=== PATIENT | female | born 1975 | race Caucasian/White ===

== ENCOUNTER → 2016-09-30 | Outpatient (CLI) | payer OTHER ==
--- NOTE | 2016-09-30 10:52 | REP ---
MAXILLOFACIAL CT WITHOUT CONTRAST: HISTORY: Chronic sinusitis. The patient is status post bilateral partial ethmoidectomy and left uncinectomy. Minimal mucosal thickening is present in the ethmoid and maxillary sinuses. A retention cyst or polyp is present in the right maxillary sinus. The remaining sinuses are clear. Mucosal thickening involves the right ostiomeatal unit. The middle and inferior nasal turbinates are partially paradoxical. The nasal septum is midline. The cribriform plate, medial nj of the orbits and optic canals are intact. The carotid canals form a segment of the posterolateral nj of the sphenoid sinus. IMPRESSION: 1. The patient is status post bilateral partial ethmoidectomy and left uncinectomy. 2. Sinus mucosal thickening as described above. 3. Right maxillary sinus retention cyst or polyp. Signed by Hernandez Carlos MD 09/30/2016 11:22 A
== END ==
LOC: M RAD 10:04
DX: J32.0 Chronic maxillary sinusitis (principal)

== ENCOUNTER → 2016-11-25 | Outpatient (REF) | payer OTHER | LOC: M LAB REF 17:06 | PROVIDERS: ATTEND Family Medicine | DX: Z12.4 Encounter for screening for malignant neoplasm of cervix (principal) ==

== ENCOUNTER → 2016-12-31 | Day surgery (SDC) | payer OTHER ==
[~2016-12-31] VITALS: Ht 170.2 cm; Wt 64.4 kg
[~2016-12-31] MED LIST: EPINEPHrine 1MG/ML INJ 30ML MD-VIAL As Ordered ONE; EPINEPHrine INJ 1 MG/ML 1ML VIAL/AMP As Ordered ONE; IBUPROFEN 800 MG TAB PO PRN; LIDOCAINE W/EPINEPHRINE 1% 20ML VIAL As Ordered ONE; LR 1,000 ML IV ONE; LR 1,000 ML IV SCH; METHYLENE BLUE 0.5% (5MG/ML) 10 ML AMP (PROVAYBLUE)(Q9968 PER 1MG) As Ordered ONE; MULT1TAB10 PO; ONDANSETRON 4MG/2ML VIAL (J2405) IV PRN; OXYMETAZOLINE NASAL SPRAY (AFRIN) As Ordered ONE; PERCOCET 5MG/325MG TAB PO PRN; SING10TA32 PO; TRAZ50TA4 PO; VITA100037 PO; ZOLO100T PO; fentaNYL 100 MCG/2 ML INJECTION (J3010) IV PRN
[2016-12-31 11:15] VITALS: BP 131/77
--- NOTE | 2017-01-02 11:46 | RO ---
DATE OF PROCEDURE: 12/31/2016 PREPROCEDURE DIAGNOSES: 1. Chronic rhinitis with hypertrophy of the inferior turbinates. 2. Chronic sinusitis. POSTPROCEDURE DIAGNOSES: PROCEDURE: Bilateral revision maxillary antrostomy with anterior ethmoidectomy and partial reduction of the inferior turbinates. SURGEON: Dr. Jose David Cooper BAKER PAINT: ANESTHESIA: INDICATIONS: This is a 41-year-old that had undergone previous endoscopic sinus surgery for chronic infection. Since that time, she has had issues with chronic nasal congestion, obstruction and recurrent infections. CT scan demonstrated adhesions that have formed in the region of the infundibulum associated with the middle turbinates that have caused occlusion of the ostiomeatal complex. In addition, she had very hypertrophic and chronically inflamed turbinates from rhinitis. DESCRIPTION OF PROCEDURE: Satisfactory general endotracheal tube anesthesia administered, pharyngeal pack was placed, the nose prepared for surgery by placing cotton-soaked pledgets of Afrin solution to the nasal cavity bilaterally, 1% Xylocaine with 1:100,000 epinephrine used to inject the inferior turbinates. First, endoscopic surgery was done. With the CT scan in full view during the procedure, 0 degree telescope used for first inspection and injection of the lateral nasal wall and middle turbinate. On the left side, the procedure first started by excising the lateral lamella of the middle turbinate which had occluded the infundibulum. I had become adherent to the uncinate process. The uncinate process was then shaved with the microdebrider. Remnants of ethmoidal bulla were also removed once the middle meatus was opened through this area. Small polyps had formed in the region of the middle turbinate inferiorly. These were removed with the microdebrider. Once a large space was created between the tip of the middle turbinate and the lateral nasal wall, visualization was excellent and the natural sinus ostia was visualized. This is then enlarged using a combination of side-biting and up-biting forceps. Completing this, remnants of ethmoidal bulla were removed and remnants of the uncinate process superiorly were removed. Adrenalin pledgets were placed in this side of the nose while an identical procedure was performed on the right side. After the Adrenalin pledgets were removed, there was no significant bleeding and for hemostasis, Nasopore packing was placed into each side of the nose. Next, the inferior turbinates were medially infractured, a 15-blade was used to make an incision on the anterior tips of the turbinate then a periosteal tunnel was created on the medial side of the turbinate. The microdebrider when then inserted through this tunnel and the underlying turbinate bone was shaved, reduced and more completely outfractured. Then the submucosa of the elevated mucoperichondrium periosteum was then shaved. Following suction, cautery was used to coagulate the posterior inferior tips of the turbinates. Completing this again, there was no significant bleeding. The pharyngeal pack was removed, throat suctioned. The patient was then awakened and extubated and sent to recovery in satisfactory condition. She was discharged home on doxycycline 100 mg twice daily and Percocet for pain. She will be seen in the office in 3 days.
== END | disposition home or self-care (01) ==
LOC: M SDC 06:54
PROVIDERS: ATTEND Specialist
DX: J31.0 Chronic rhinitis (principal); J34.3 Hypertrophy of nasal turbinates; J32.9 Chronic sinusitis, unspecified; J45.909 Unspecified asthma, uncomplicated; K21.9 Gastro-esophageal reflux disease without esophagitis; M54.9 Dorsalgia, unspecified; F41.9 Anxiety disorder, unspecified; F32.9 Major depressive disorder, single episode, unspecified; G43.909 Migraine, unspecified, not intractable, without status migrainosus; R06.83 Snoring; Z79.899 Other long term (current) drug therapy; Z98.51 Tubal ligation status; Z90.89 Acquired absence of other organs
CPT/HCPCS: 30130; 31254; 31256; 88305; Q9968

== ENCOUNTER → 2017-04-25 | Outpatient (CLI) | payer OTHER ==
[~2017-04-25] MED LIST changes: -EPINEPHrine 1MG/ML INJ 30ML MD-VIAL As Ordered ONE; -EPINEPHrine INJ 1 MG/ML 1ML VIAL/AMP As Ordered ONE; -IBUPROFEN 800 MG TAB PO PRN; -LIDOCAINE W/EPINEPHRINE 1% 20ML VIAL As Ordered ONE; -LR 1,000 ML IV ONE; -LR 1,000 ML IV SCH; -METHYLENE BLUE 0.5% (5MG/ML) 10 ML AMP (PROVAYBLUE)(Q9968 PER 1MG) As Ordered ONE; -ONDANSETRON 4MG/2ML VIAL (J2405) IV PRN; -OXYMETAZOLINE NASAL SPRAY (AFRIN) As Ordered ONE; -PERCOCET 5MG/325MG TAB PO PRN; +TRAZ50TA11 PO; -TRAZ50TA4 PO; -VITA100037 PO; +VITA100067 PO; -fentaNYL 100 MCG/2 ML INJECTION (J3010) IV PRN
--- NOTE | 2017-04-25 16:20 | REP ---
ABDOMEN, FLAT AND UPRIGHT, PA CHEST, FOUR VIEWS: HISTORY: Abdominal distention. A small amount of air is present in small and large intestine. There are no air fluid levels or dilated loops of intestine. There is no pneumoperitoneum. The lungs are clear. IMPRESSION: Nonspecific bowel gas pattern. Signed by Hernandez Carlos MD 04/25/2017 04:26 P
== END ==
LOC: M RAD 09:48
PROVIDERS: ATTEND Physician Assistant Medical
DX: R14.0 Abdominal distension (gaseous) (principal); R10.84 Generalized abdominal pain; R19.8 Other specified symptoms and signs involving the digestive system and abdomen

== ENCOUNTER → 2017-06-19 | Outpatient (CLI) | payer OTHER ==
--- NOTE | 2017-06-19 10:29 | REP ---
NUCLEAR GASTRIC EMPTYING SCAN: Following the oral administration of 1.03 mCi of technetium-99m sulfur colloid in two scrambled eggs in 6 ounces of water multiple images of the upper abdomen are performed in the anterior and posterior projections for 90 minutes. At the end of 90 minutes 44% of the ingested activity has emptied from the stomach. This yields a T1/2 out of 103 minutes. Based on the slope of the emptying curve when plotted on the graft the adjusted T1/2 is 93 minutes which is at the upper limits of normal. IMPRESSION: Gastric emptying time upper limits of normal. Signed by Maurice Hewitt MD 06/19/2017 02:35 P
== END ==
LOC: M RAD 08:06
PROVIDERS: ATTEND Physician Assistant Medical
DX: R68.81 Early satiety (principal); R12 Heartburn; R11.0 Nausea
CPT/HCPCS: 78264; A9541

== ENCOUNTER 2017-07-22 12:32 | Day surgery (SDC) | payer OTHER ==
[~2017-07-22] VITALS: Ht 167.6 cm; Wt 64.9 kg
[~2017-07-22 12:32] MED LIST changes: +PROT1TAB2 PO
[2017-07-22] MEDS ORDERED: NS 1,000 ML IV ONE (13:00)
[2017-07-22] MEDS ORDERED: PROPOFOL 200 MG/20 ML VIAL As Ordered ONE (13:28)
[2017-07-22] MEDS ORDERED: LIDOCAINE 2% INJ 100 MG/5 ML SDV (FOR ANES.) As Ordered ONE (13:28)
--- NOTE | 2017-07-22 13:55 | ROOR ---
Patient Name: Sunita Reynolds Procedure Date: 07/22/2017 1:44 PM Date of : 1975 Age: 41 Room: [facility] Gender: Female Note Status: Finalized Procedure: Upper GI endoscopy Indications: Functional Dyspepsia, Nausea Providers: Adán RASHID MD Referring MD: Monica MORALES DO Requesting Provider: Medicines: Monitored Anesthesia Care Complications: No immediate complications. Procedure: Pre-Anesthesia Assessment: - The heart rate, respiratory rate, oxygen saturations, blood pressure, adequacy of pulmonary ventilation, and response to care were monitored throughout the procedure. The Endoscope was introduced through the mouth, and advanced to the second part of duodenum. The upper GI endoscopy was accomplished without difficulty. The patient tolerated the procedure well. Findings: The esophagus was normal. The stomach was normal. The examined duodenum was normal. Impression: - Normal esophagus. - Normal stomach. - Normal examined duodenum. - No specimens collected. Recommendation: - Continue present medications. - Follow an antireflux regimen. Adán Rashid MD Adán RASHID MD 07/22/2017 1:55:19 PM This report has been signed electronically. Number of Addenda: 0 Note Initiated On: 07/22/2017 1:44 PM Estimated Blood Loss: Estimated blood loss: none.
[2017-07-22 14:32] VITALS: BP 112/70
== END 2017-07-22 14:30 | disposition home or self-care (01) ==
LOC: M OPP 12:32
PROVIDERS: ATTEND Internal Medicine Gastroenterology
DX: K30 Functional dyspepsia (principal); R11.0 Nausea; R14.0 Abdominal distension (gaseous); R19.7 Diarrhea, unspecified; R68.81 Early satiety; R10.9 Unspecified abdominal pain; K21.9 Gastro-esophageal reflux disease without esophagitis; G43.909 Migraine, unspecified, not intractable, without status migrainosus; J32.9 Chronic sinusitis, unspecified; J45.909 Unspecified asthma, uncomplicated; F41.9 Anxiety disorder, unspecified; E04.1 Nontoxic single thyroid nodule; Z79.899 Other long term (current) drug therapy

== ENCOUNTER → 2018-06-12 | Outpatient (CLI) | payer OTHER | LOC: M RAD 08:58 | DX: R10.11 Right upper quadrant pain (principal); R11.0 Nausea; K82.8 Other specified diseases of gallbladder | CPT/HCPCS: 76705 ==

== ENCOUNTER → 2018-08-11 | Outpatient (CLI) | payer OTHER ==
[~2018-08-11] MED LIST changes: +GASTROGRAFIN SOLUTION 30ML (Q9963) As Ordered ONE; +HAIR1CAP2 PO; +ISOVUE-370 76% 100ML VIAL (Q9967) As Ordered ONE; +MIRA3350 PO; +MOME50SP; +TRAZ-160 PO; -TRAZ50TA11 PO
--- NOTE | 2018-08-14 10:05 | REP ---
Clinical: Right upper quadrant pain. Technique: Axial contrast enhanced images from the lung bases to the pubic symphysis using oral (per protocol) and 100 ml Isovue 370 intravenous contrast material with precontrast and delayed images of the abdomen as well as coronal and sagittal re-formations. Findings: Lung bases are clear. Visualized heart and pericardium normal. Liver, spleen, pancreas, gallbladder, bilateral adrenal glands and kidneys are normal. The enteric system is without obstruction or acute inflammatory process. Scattered sigmoid diverticula noted without acute diverticulitis. Small hiatal hernia at the gastroesophageal junction suggested. Pelvis demonstrates normal bladder and age-appropriate uterus/adnexa. No ascites. No free air. No adenopathy. Abdominal aorta and vasculature without aneurysm or dissection. Surrounding musculoskeletal structures are intact at Impression: 1. Few scattered sigmoid diverticula without acute diverticulitis. 2. Suspected small hiatal hernia. 3. No further acute abdominopelvic pathology appreciated. Electronically Signed by Kendall Zuluaga MD 08/14/2018 09:56 A
== END ==
LOC: M RAD 09:41
PROVIDERS: ATTEND Internal Medicine Gastroenterology
DX: R10.11 Right upper quadrant pain (principal)
CPT/HCPCS: 74178; Q9963; Q9967

== ENCOUNTER 2018-09-17 11:28 | Day surgery (SDC) | payer OTHER ==
[~2018-09-17] VITALS: Ht 170.2 cm; Wt 67.1 kg
[~2018-09-17 11:28] MED LIST changes: -GASTROGRAFIN SOLUTION 30ML (Q9963) As Ordered ONE; -ISOVUE-370 76% 100ML VIAL (Q9967) As Ordered ONE; +LEXA1TAB PO; +NS 1,000 ML IV SCH
[2018-09-17] MEDS ORDERED: LIDOCAINE 2% INJ 100 MG/5 ML SDV (FOR ANES.) As Ordered ONE (11:34)
[2018-09-17] MEDS ORDERED: PROPOFOL 200 MG/20 ML VIAL As Ordered ONE (11:34)
--- NOTE | 2018-09-17 12:38 | ROOR ---
Patient Name: Sunita Reynolds Procedure Date: 09/17/2018 12:25 PM Date of : 1975 Age: 42 Room: [facility] Gender: Female Note Status: Finalized Procedure: Upper GI endoscopy Indications: Abdominal pain, Nausea Providers: Adán RASHID MD Referring MD: Monica MORALES DO Requesting Provider: Medicines: Monitored Anesthesia Care Complications: No immediate complications. Procedure: Pre-Anesthesia Assessment: - The heart rate, respiratory rate, oxygen saturations, blood pressure, adequacy of pulmonary ventilation, and response to care were monitored throughout the procedure. The Endoscope was introduced through the mouth, and advanced to the second part of duodenum. The upper GI endoscopy was accomplished without difficulty. The patient tolerated the procedure well. Findings: The esophagus was normal. The stomach was normal. The examined duodenum was normal. Impression: - Normal esophagus. - Normal stomach. - Normal examined duodenum. - No specimens collected. Recommendation: - Observe patient's clinical course. Adán Rashid MD Adán RASHID MD 09/17/2018 12:38:29 PM This report has been signed electronically. Number of Addenda: 0 Note Initiated On: 09/17/2018 12:25 PM Estimated Blood Loss: Estimated blood loss: none.
--- NOTE | 2018-09-17 12:53 | ROOR ---
Patient Name: Sunita Reynolds Procedure Date: 09/17/2018 12:27 PM Date of : 1975 Age: 42 Room: [facility] Gender: Female Note Status: Finalized Procedure: Colonoscopy Indications: High risk colon cancer surveillance: Personal history of colonic polyps, Incidental abdominal distress noted, Incidental change in bowel habits noted Providers: Adán RASHID MD Referring MD: Monica MORALES DO Requesting Provider: Medicines: Monitored Anesthesia Care Complications: No immediate complications. Procedure: Pre-Anesthesia Assessment: - The heart rate, respiratory rate, oxygen saturations, blood pressure, adequacy of pulmonary ventilation, and response to care were monitored throughout the procedure. The Colonoscope was introduced through the anus and advanced to 15 cm into the ileum. The colonoscopy was performed without difficulty. The patient tolerated the procedure well. The quality of the bowel preparation was good. Findings: The perianal and digital rectal examinations were normal. Retroflexion in the right colon was performed. The colon (entire examined portion) appeared normal. The terminal ileum appeared normal. Small Internal Hemorrhoids. Impression: - The entire colon is normal. - The examined portion of the ileum was normal. - Small Internal Hemorrhoids. - No specimens collected. Recommendation: - Continue present medications. - Repeat colonoscopy in 5 years for adenoma surveillance. Adán Rashid MD Adán RASHID MD 09/17/2018 12:53:03 PM This report has been signed electronically. Number of Addenda: 0 Note Initiated On: 09/17/2018 12:27 PM Estimated Blood Loss: Estimated blood loss: none.
[2018-09-17 13:20] VITALS: BP 126/75
== END 2018-09-17 13:22 | disposition home or self-care (01) ==
LOC: M OPP 11:28
PROVIDERS: ATTEND Internal Medicine Gastroenterology
DX: Z12.11 Encounter for screening for malignant neoplasm of colon (principal); Z86.010 Personal history of colon polyps; R11.0 Nausea; R10.9 Unspecified abdominal pain; K21.9 Gastro-esophageal reflux disease without esophagitis; Z79.899 Other long term (current) drug therapy; Z80.3 Family history of malignant neoplasm of breast; Z80.1 Family history of malignant neoplasm of trachea, bronchus and lung

== ENCOUNTER → 2019-06-25 | Outpatient (CLI) | payer OTHER ==
[~2019-06-25] MED LIST changes: -NS 1,000 ML IV SCH; -TRAZ-160 PO; +TRAZ-252 PO
--- NOTE | 2019-07-13 05:57 | ECWPNPC ---
PATIENT NAME: LAYNE CARSON : 1975 GENDER: FEMALE VISIT DATE: 06/25/2019 DISCHARGE DATE: 06/25/19 1654 VISIT LOCKED DATE TIME: PHYSICIAN: JOSEP WAGNER MD RESOURCE: JOSEP WAGNER MD REASON FOR APPOINTMENT 1. ACET INJ/SI INJECTIONS HISTORY OF PRESENT ILLNESS PAIN SCREENING: PATIENT HAS A COMPLAINT OF ACUTE OR CHRONIC PAIN :YES 43 YEAR OLD FEMALE PATIENT WITH A HISTORY OF CHRONIC LOW BACK AND LEG PAIN. THE PATIENT DESCRIBES THE PAIN ACHING, BURNING, SHARP, TENDER, SHOOTING, DAILY, AND CONTINUOUS WITH A PAIN SCORE OF 8-10/10 DEPENDING ON PHYSICAL ACTIVITY. THE PATIENT STATES HER PAIN BEGINS IN HER LOW BACK WITH NUMBNESS, TINGLING SENSATIONS, AND PAIN RADIATING DOWN BOTH LEGS, BUT MAINLY HER LEFT LEG IS AFFECTED. THE PATIENT SAYS WHEN SHE STANDS UP PAIN SHOOTS DOWN BOTH LEGS FROM HER LOW BACK. THE PATIENT STATES HER PAIN STARTED IN 2005 AFTER CHILDBIRTH AND HAS INCREASED OVER THE YEARS SINCE THEN TO THE POINT THAT THE PAIN IS NOW SEVERE FOR HER. PATIENT DENIES UNEXPLAINABLE WEIGHT LOSS, FEVER, CHILLS, NEW CHANGES ON HER URINARY OR BOWEL CONTROL. FALL RISK SCREENING: SCREENING :NO FALLS REPORTED IN THE LAST YEAR CURRENT MEDICATIONS TAKING LEXAPRO 10 MG TABLET 1 TABLET ORALLY ONCE A DAY TAKING TRAZODONE HCL 50 MG TABLET 1 TABLET AT BEDTIME NEEDED ORALLY ONCE A DAY TAKING SINGULAIR 10 MG TABLET 1 TABLET ORALLY ONCE A DAY TAKING GABAPENTIN 100 MG CAPSULE 1 CAPSULE ORALLY ONCE A DAY TAKING TIZANIDINE HCL 4 MG TABLET 1 TABLET NEEDED ORALLY THREE TIMES A DAY TAKING PEPCID 20 MG TABLET 1 TABLET AT BEDTIME NEEDED ORALLY ONCE A DAY TAKING MULTIVITAMINS TABLET 1 ORALLY DAILY TAKING ALBUTEROL SULFATE HFA 108 (90 BASE) MCG/ACT AEROSOL SOLUTION 2 PUFFS INHALATION NEEDED NOT-TAKING CYMBALTA 60 MG 1 TABLET PO ONCE DAILY NOT-TAKING MELATONIN 3 MG TABLET 1 TAB ORALLY NIGHTLY NOT-TAKING ADVAIR DISKUS 250-50 MCG/DOSE MISCELLANEOUS 1 INHALATION ONCE DAILY NOT-TAKING NEXIUM 40 MG CAPSULE DELAYED RELEASE DIRECTED ORALLY PRN MEDICATION LIST REVIEWED AND RECONCILED WITH THE PATIENT PAST MEDICAL HISTORY ASTHMA ANXIETY INSOMNIA SEASONAL ALLERGIES GOITER/REMOVED DEPRESSION CYSTOCELE CHRONIC BACK PAIN ALLERGIES N.K.D.A. SURGICAL HISTORY THYROIDECTOMY/PARTIAL---BENIGN 02/2010 TUBAL LIGATION 03/30 RIGHT BREAST LUMP REMOVED/BENIGN 2000 SINUS SURGERY 2018 BLADDER SLING 03/2019 FAMILY HISTORY FATHER: ALIVE, HTN , HYPERLIPIDEMIA, DIAGNOSED WITH OTHER MALIGNANT NEOPLASM OF UNSPECIFIED SITE MOTHER: ALIVE, HTN, HYPERLIPIDEMIA, HYPERTENSION, UNSPECIFIED NONPSYCHOTIC MENTAL DISORDER FOLLOWING ORGANIC BRAIN DAMAGE MATERNAL AUNT: ALIVE, BREAST CANCER AGE 78, OTHER MALIGNANT NEOPLASM OF UNSPECIFIED SITE SOCIAL HISTORY GENERAL: TOBACCO USE ARE YOU A:NEVER SMOKER OTHERS AT HOME: SPOUSE, CHILDREN. EDUCATION LEVEL OF EDUCATION:HIGH SCHOOL DIET: REGULAR/NO ED. LANGUAGE LANGUAGES SPOKEN:MAORI DOMESTIC VIOLENCE NONE. RECREATIONAL DRUG USE DENIES. EXERCISE: NO REGULAR EXERCISE. LEARNING BARRIERS / SPECIAL NEEDS BARRIERS TO LEARNING?NO HEARING IMPAIRED?NO VISION IMPAIRED?NO COGNITIVELY IMPAIRED?NO READINESS TO LEARN?YES PAIN CLINIC PFS, CLERGY, PUBLIC HEALTH REFERRALS HAS THE PATIENT BEEN EDUCATED REGARDING HIS/HER PLAN OF CARE?YES HAS THE PATIENT BEEN EDUCATED REGARDING PAIN, THE RISK FOR PAIN, THE IMPORTANCE OF EFFECTIVE PAIN MANAGEMENT, AND THE PAIN ASSESSMENT PROCESS?YES LATEX QUESTIONNAIRE LATEX ALLERGY : HAVE YOU EVER DEVELOPED ANY TYPE OF REACTION AFTER HANDLING LATEX PRODUCTS SUCH RUBBER GLOVES, CONDOMS, DIAPHRAGMS, BALLOONS, SOCKS, OR UNDERWEAR?NO LATEX ALLERGY : HAVE YOU EVER DEVELOPED ANY TYPE OF REACTION DURING OR AFTER DENTAL APPOINTMENT, VAGINAL/RECTAL EXAMINATION, SURGICAL PROCEDURE, OR ANY OTHER EXPOSURE?NO LATEX RISK : HAVE YOU EVER HAD ANY DIFFICULTY BREATHING OR HIVES AFTER EATING OR HANDLING ANY FRUITS, OR VEGETABLES; SUCH KIWI, BANANAS, STONE FRUITS, OR CHESTNUTSNO LATEX RISK : DO YOU HAVE A PREVIOUS PERSONAL HISTORY OF MORE THAN NINE SURGERIES, SPINA BIFIDA, OR REPEATED CATHERIZATIONS? NO LATEX RISK : ARE YOU FREQUENTLY EXPOSED TO LATEX PRODUCTS IN YOUR OCCUPATION?NO DATE ASKED : 06/25/2019 CAFFEINE CAFFEINE USE?YES COFFEE 3-4 TIMES A DAY ADVANCE DIRECTIVE ADVANCE DIRECTIVE DISCUSSED WITH PATIENT:YES PT DOES NOT HAVE HCP AND DECLINES INFO AND ASSISTANCE WITH FORM AT THIS TIME. 06/25/19 HOAHAOISM HOAHAOISM NO ZOROASTRIANISM BELIEFS THAT WOULD IMPACT HEALTH CARE. MARITAL STATUS: . 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 REVIEWED WITH PATIENT 06/25/19 1539 BV. HOSPITALIZATION/MAJOR DIAGNOSTIC PROCEDURE SEE ABOVE AND CHILDBIRTH X4 REVIEW OF SYSTEMS REVIEWED BY: PROVIDER: JOSEP WAGNER MD . CONSTITUTIONAL: ANY CHANGE IN YOUR MEDICAL CONDITION? NO . CHILLS NO . FEVER NO . INFECTION: DO YOU HAVE NEW INFECTIONS? NO . DO YOU HAVE HISTORY OF MRSA? NO . MUSCULOSKELETAL: ANY NEW PATTERNS OF PAIN OR NUMBNESS? NO . SYTEMIC LUPUS NO . GASTROENTEROLOGY: ANY NEW CHANGE IN BOWEL CONTROL? NO . BARRETTS ESOPHAGUS NO . CIRRHOSIS NO . HEPATITIS NO . LIVER FAILURE NO . ACID REFLUX YES . UNEXPLAINED WEIGHT LOSS NO . GENITOURINARY: ANY NEW CHANGE IN BLADDER CONTROL? NO . IS THERE A CHANCE YOU COULD BE ? NO . HEMATOLOGY/LYMPH: DO YOU TAKE ANY BLOOD THINNERS? (FOR EXAMPLE- COUMADIN, PLAVIX, AGGRENOX, PLATEL, PRADAXA, OR XARELTO) NO . WHEN WAS YOUR LAST DOSE? DATE: TIME: . LOW PLATELET COUNT NO . SICKLE CELL DISEASE NO . VON WILLIEBRANDS NO . FACTOR V LEIDEN NO . THALLASEMIA NO . ANEMIA NO . EASY BRUISING NO . NEUROLOGY: HAVE YOU FALLEN IN THE PAST 12 MONTHS? NO . ANY NEW EXTREMITY NUMBNESS OR WEAKNESS? NO . HEAD INJURY NO . DEMENTIA NO . CEREBRAL PALSY NO . MULTIPLE SCLEROSIS NO . DIZZINESS YES, PT STATES SHE SOMETIMES GETS DIZZINESS AND LIGHTHEADED UPON STANDING OR WHEN BENDING OVER. USUALLY GOES AWAY WITHIN A FEW SECONDS . HEADACHE YES,PT STATES SHE USUALLY GETS A HEADACHE EVERY WEEK THAT SEEMS TO LAST A FEW DAYS. PT DESCRIBES THE HEADACHE A NAGGING LINGERING PAIN THAT SEEMS TO MOSTLY BE IN HER RIGHT DRUZE AREA. . STROKES NO . VERTIGO NO . CARDIOLOGY: DO YOU HAVE A PACEMAKER OR DEFIBRILLATOR? NO . ANGINA NO . HEART ATTACK NO . HEART SURGERY NO . CONGESTIVE HEART FAILURE/FLUID OVERLOAD NO . CHEST PAIN OCCASIONALY RELATED TO ANXIETY . HIGH BLOOD PRESSURE NO . IRREGULAR HEART BEAT NO . RESPIRATORY: HAVE YOU BEEN SICK IN THE PAST WEEK? NO . FEVER NO . FLU LIKE SYMPTOMS? NO . CPAP NO . BYPAP NO . ASTHMA YES, A CHILD . EMPHYSEMA NO . CHRONIC LUNG DISEASES NO . SHORTNESS OF BREATH ON EXERTION NO . COUGH NO . SNORING YES . INTEGUMENTARY: DO YOU HAVE ANY RASHES OR OPEN SORES? NO . ALLERGIC/IMMUNO: ARE YOU ALLERGIC TO IV DYE? NO . ANY NEW ALLERGIES? NO . PSYCHIATRIC: DO YOU HAVE THOUGHTS OF HURTING YOURSELF OR SOMEONE ELSE? NO . ARE YOU ABUSED, NEGLECTED, OR IN AN UNSAFE ENVIRONMENT? NO . ENDOCRINOLOGY: ARE YOU DIABETIC? NO . THYROID DISORDER HAD PARTIAL THYROID REMOVAL . OTHER: DO YOU NEED ANY PRESCRIPTIONS? NO . IF YES, PLEASE LIST: ____ . ANY NEW PROBLEMS WITH YOUR MEDICATIONS? NO . WHEN DID YOU LAST EAT? ____ . WHEN DID YOU LAST DRINK? ____ . WHAT DID YOU LAST DRINK? ____ . NAME OF PERSON DRIVING YOU HOME? ____ . DO YOU HAVE ANY OTHER QUESTIONS OR CONCERNS NO . VITAL SIGNS WT 144.6 LBS, HT 66.5 IN, BMI 22.99 INDEX, BP 122/78 MM HG, HR 57 /MIN, RR 18 /MIN, TEMP 97.4 F, OXYGEN SAT % 99%, NA INITIALS AW 1530, REVIEWED BY: BV. EXAMINATION GENERAL EXAMINATION: PATIENT IS ALERT O X 3 AND COOPERATIVE. LUNGS CLEAR, TO AUSCULTATION. HEART: NO MURMURS OR GALLOPS; FACIAL CRANIAL NERVES ARE GROSSLY NORMAL. GOOD SYMMETRY OF FACIAL MUSCLE MOVEMENT. NORMAL VISUAL DASILVA. ANTALGIC WALK. LEFT LEG IS WEAKER AT EXTENSION AND FLEXION, ESPECIALLY AT EXTENSION. PATIENT HAS DIFFICULTY STANDING. STRAIGHT LEG RAISE OF THE LEFT LEG IS POSITIVE AT 45 DEGREES FOR RADICULOPATHY. MRI OF THE LUMBAR SPINE DONE ON 05/13/2019 SHOWS BULGING DISC AT L4-L5 LEVEL. ASSESSMENTS INTERVERTEBRAL DISC DISORDERS WITH RADICULOPATHY, LUMBAR REGION - M51.16 (PRIMARY) TREATMENT INTERVERTEBRAL DISC DISORDERS WITH RADICULOPATHY, LUMBAR REGION CLINICAL NOTES: WE DISCUSSED SEVERAL ISSUES WITH MS. CARSON'S PAIN MANAGEMENT CASE. DUE TO THE LUMBAR RADICULOPATHY, I WOULD LIKE TO MOVE FORWARD WITH A LUMBAR EPIDURAL STEROID INJECTION AT THIS TIME. WE DISCUSSED THE BENEFITS, RISKS, AND ALTERNATIVES OF THE INJECTION AND THE PATIENT WOULD LIKE TO PROCEED. I AM LOOKING FOR LONG LASTING PAIN RELIEF FROM THIS INJECTION FOR THE PATIENT. THE PATIENT WILL FOLLOW UP IN SEVERAL WEEKS AFTER HER INJECTION. INSTRUCTIONS WERE GIVEN, QUESTIONS WERE ANSWERED, PATIENT REPORTS UNDERSTANDING AND AGREES WITH THE PLAN. I, PRICILLA RED, DOCUMENTED THE ABOVE INFORMATION ACTING A SCRIBE FOR DR. WAGNER. I HAVE REVIEWED THE ABOVE DOCUMENT, WRITTEN BY PRICILLA RED SCRIBE AND I VERIFY THAT IT IS ACCURATE. DEAR JOEL BANGURA: THANK YOU FOR YOUR KIND REFERRAL OF LAYNE CARSON. IF YOU WANT TO DISCUSS HER CASE WITH ME PLEASE CALL ME AT THE PAIN CENTER AT [phone]. SINCERELY, JOSEP WAGNER MD PAIN MEDICINE . PREVENTIVE MEDICINE PAIN CLINIC TEACHING: PROCEDURE TEACHING PT GIVEN WRITTEN AND VERBAL EDUCATION ON LUMBAR EPIDURAL, PT ALSO GIVEN WRITTEN AND VERBAL PRE PROCEDURE INSTRUCTIONS. PT VERBALIZES UNDERSTANDING OF ALL EDUCATION AND INSTRUCTIONS. DEVORAH PATEL 06/25/2019 4:57:04 PM > . PROCEDURE CODES FA211 ESTABILISHED PATIENT [facility] FACILITY CHARGE [id number] CURRENT MEDS W/DOSAGES DOCUMENTED G8730 PAIN ASSESS POS TOOL F/U PLAN DOC DISPOSITION & COMMUNICATION FOLLOW UP REASON: LESI ELECTRONICALLY SIGNED BY JOSEP WAGNER MD, MD ON 07/12/2019 AT 05:35 PM EST DISCLAIMER : THIS IS A VISIT SUMMARY EXTRACTED FROM THE [employer] CHART. IT IS NOT A COPY OF THE [employer] PROGRESS NOTE. THIERNOD
== END ==
LOC: M PAIN 15:30
PROVIDERS: ATTEND Anesthesiology
DX: M51.16 Intervertebral disc disorders with radiculopathy, lumbar region (principal); G89.29 Other chronic pain; Z86.59 Personal history of other mental and behavioral disorders; G47.00 Insomnia, unspecified; Z79.899 Other long term (current) drug therapy

== ENCOUNTER → 2019-07-14 | Outpatient (CLI) | payer OTHER ==
--- NOTE | 2019-07-31 02:58 | ECWPNPC ---
PATIENT NAME: LAYNE CARSON : 1975 GENDER: FEMALE VISIT DATE: 07/14/2019 DISCHARGE DATE: 07/14/19 1033 VISIT LOCKED DATE TIME: PHYSICIAN: CHEYENNE HODGSON RESOURCE: CHEYENNE HODGSON HISTORY OF PRESENT ILLNESS HISTORY OF PRESENT ILLNESS: 43 Y/O FEMALE BEING SEEN ON AN URGENT BASIS FOR MEDICINE MANAGEMENT.REPORTING THAT CURRENT MEDICATION NOT WORKING.SHE HAS HAD PERSISTENT BACK PAIN AND RIGHT BUTTOCK PAIN.LESI IS PLANNED FOR 08/04/19.REVIEWED MRI AND DISCUSSED MEDICATION OPTIONS.PAIN IS ACROSS LOW BACK WITH RADIATION INTO RIGHT BUTTOCK.STARTED MEDICATION TRIALS FOR CHRONIC PAIN APPROXIMATLEY 5 YEARS AGO.STATES GABAPENTIN 300MG AT NIGHT CAUSED AM FATIGUE AND SHE IS USING THIS JUST NEEDED OVER THE PAST FEW YEARS.HAS TRIALED FLEXERIL PERIODICALLY WITH NO IMPROVEMENT.STARTED TIZANIDINE 4MG RECENTLY WITHOUT IMPROVEMENT.PAIN IS WORSE AT NIGHT.RATING PAIN VAS 7/10. PAIN THE PATIENT DESCRIBES THE PAIN... FALL RISK SCREENING: SCREENING :NO FALLS REPORTED IN THE LAST YEAR CURRENT MEDICATIONS TAKING LEXAPRO 10 MG TABLET 1 TABLET ORALLY ONCE A DAY TAKING TRAZODONE HCL 50 MG TABLET 1 TABLET AT BEDTIME NEEDED ORALLY ONCE A DAY TAKING SINGULAIR 10 MG TABLET 1 TABLET ORALLY ONCE A DAY TAKING GABAPENTIN 100 MG CAPSULE 1 CAPSULE ORALLY ONCE A DAY TAKING TIZANIDINE HCL 4 MG TABLET 1 TABLET NEEDED ORALLY THREE TIMES A DAY TAKING PEPCID 20 MG TABLET 1 TABLET AT BEDTIME NEEDED ORALLY ONCE A DAY TAKING MULTIVITAMINS TABLET 1 ORALLY DAILY TAKING ALBUTEROL SULFATE HFA 108 (90 BASE) MCG/ACT AEROSOL SOLUTION 2 PUFFS INHALATION NEEDED NOT-TAKING CYMBALTA 60 MG 1 TABLET PO ONCE DAILY NOT-TAKING MELATONIN 3 MG TABLET 1 TAB ORALLY NIGHTLY NOT-TAKING ADVAIR DISKUS 250-50 MCG/DOSE MISCELLANEOUS 1 INHALATION ONCE DAILY NOT-TAKING NEXIUM 40 MG CAPSULE DELAYED RELEASE DIRECTED ORALLY PRN MEDICATION LIST REVIEWED AND RECONCILED WITH THE PATIENT PAST MEDICAL HISTORY ASTHMA ANXIETY INSOMNIA SEASONAL ALLERGIES GOITER/REMOVED DEPRESSION CYSTOCELE CHRONIC BACK PAIN ALLERGIES N.K.D.A. SURGICAL HISTORY THYROIDECTOMY/PARTIAL---BENIGN 02/2010 TUBAL LIGATION 03/30 RIGHT BREAST LUMP REMOVED/BENIGN 2000 SINUS SURGERY 2018 BLADDER SLING 03/2019 FAMILY HISTORY FATHER: ALIVE, HTN , HYPERLIPIDEMIA, DIAGNOSED WITH OTHER MALIGNANT NEOPLASM OF UNSPECIFIED SITE MOTHER: ALIVE, HTN, HYPERLIPIDEMIA, HYPERTENSION, UNSPECIFIED NONPSYCHOTIC MENTAL DISORDER FOLLOWING ORGANIC BRAIN DAMAGE MATERNAL AUNT: ALIVE, BREAST CANCER AGE 78, OTHER MALIGNANT NEOPLASM OF UNSPECIFIED SITE 3 BROTHER(S) . 1 SON(S) , 3 DAUGHTER(S) - HEALTHY. 2 BROTHERS - SKIN CANCER1 BROTHER . SOCIAL HISTORY GENERAL: TOBACCO USE ARE YOU A:: NEVER SMOKER. OTHERS AT HOME: SPOUSE, CHILDREN. EDUCATION LEVEL OF EDUCATION:HIGH SCHOOL DIET: REGULAR/NO ED. LANGUAGE LANGUAGES SPOKEN:NIGERIEN DOMESTIC VIOLENCE NONE. RECREATIONAL DRUG USE DENIES. EXERCISE: NO REGULAR EXERCISE. LEARNING BARRIERS / SPECIAL NEEDS BARRIERS TO LEARNING?NO HEARING IMPAIRED?NO VISION IMPAIRED?NO COGNITIVELY IMPAIRED?NO READINESS TO LEARN?YES PAIN CLINIC PFS, CLERGY, PUBLIC HEALTH REFERRALS HAS THE PATIENT BEEN EDUCATED REGARDING HIS/HER PLAN OF CARE?YES HAS THE PATIENT BEEN EDUCATED REGARDING PAIN, THE RISK FOR PAIN, THE IMPORTANCE OF EFFECTIVE PAIN MANAGEMENT, AND THE PAIN ASSESSMENT PROCESS?YES LATEX QUESTIONNAIRE LATEX ALLERGY : HAVE YOU EVER DEVELOPED ANY TYPE OF REACTION AFTER HANDLING LATEX PRODUCTS SUCH RUBBER GLOVES, CONDOMS, DIAPHRAGMS, BALLOONS, SOCKS, OR UNDERWEAR?NO LATEX ALLERGY : HAVE YOU EVER DEVELOPED ANY TYPE OF REACTION DURING OR AFTER DENTAL APPOINTMENT, VAGINAL/RECTAL EXAMINATION, SURGICAL PROCEDURE, OR ANY OTHER EXPOSURE?NO LATEX RISK : HAVE YOU EVER HAD ANY DIFFICULTY BREATHING OR HIVES AFTER EATING OR HANDLING ANY FRUITS, OR VEGETABLES; SUCH KIWI, BANANAS, STONE FRUITS, OR CHESTNUTSNO LATEX RISK : DO YOU HAVE A PREVIOUS PERSONAL HISTORY OF MORE THAN NINE SURGERIES, SPINA BIFIDA, OR REPEATED CATHERIZATIONS? NO LATEX RISK : ARE YOU FREQUENTLY EXPOSED TO LATEX PRODUCTS IN YOUR OCCUPATION?NO DATE ASKED : 06/25/2019 CAFFEINE CAFFEINE USE?YES COFFEE 3-4 TIMES A DAY ADVANCE DIRECTIVE ADVANCE DIRECTIVE DISCUSSED WITH PATIENT:YES PT DOES NOT HAVE HCP AND DECLINES INFO AND ASSISTANCE WITH FORM AT THIS TIME. HINDUISM HINDUISM NO MU-ISM BELIEFS THAT WOULD IMPACT HEALTH CARE. MARITAL STATUS: . 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 REVIEWED WITH PATIENT 06/25/19 5099 BVREVIEWED WITH PATIENT 07/14/19 4309 JS. HOSPITALIZATION/MAJOR DIAGNOSTIC PROCEDURE SEE ABOVE AND CHILDBIRTH X4 REVIEW OF SYSTEMS REVIEWED BY: PROVIDER: CHEYENNE QUAN . CONSTITUTIONAL: ANY CHANGE IN YOUR MEDICAL CONDITION? NO . CHILLS NO . FEVER NO . INFECTION: DO YOU HAVE NEW INFECTIONS? NO . DO YOU HAVE HISTORY OF MRSA? NO . MUSCULOSKELETAL: ANY NEW PATTERNS OF PAIN OR NUMBNESS? NO . GASTROENTEROLOGY: ANY NEW CHANGE IN BOWEL CONTROL? NO . GENITOURINARY: ANY NEW CHANGE IN BLADDER CONTROL? NO . IS THERE A CHANCE YOU COULD BE ? NO . HEMATOLOGY/LYMPH: DO YOU TAKE ANY BLOOD THINNERS? (FOR EXAMPLE- COUMADIN, PLAVIX, AGGRENOX, PLATEL, PRADAXA, OR XARELTO) NO . WHEN WAS YOUR LAST DOSE? DATE: TIME: . NEUROLOGY: HAVE YOU FALLEN IN THE PAST 12 MONTHS? NO . ANY NEW EXTREMITY NUMBNESS OR WEAKNESS? NO . CARDIOLOGY: DO YOU HAVE A PACEMAKER OR DEFIBRILLATOR? NO . RESPIRATORY: HAVE YOU BEEN SICK IN THE PAST WEEK? NO . FEVER NO . FLU LIKE SYMPTOMS? NO . COUGH NO . INTEGUMENTARY: DO YOU HAVE ANY RASHES OR OPEN SORES? NO . ALLERGIC/IMMUNO: ARE YOU ALLERGIC TO IV DYE? NO . ANY NEW ALLERGIES? NO . PSYCHIATRIC: DO YOU HAVE THOUGHTS OF HURTING YOURSELF OR SOMEONE ELSE? NO . ARE YOU ABUSED, NEGLECTED, OR IN AN UNSAFE ENVIRONMENT? NO . ENDOCRINOLOGY: ARE YOU DIABETIC? NO . OTHER: DO YOU NEED ANY PRESCRIPTIONS? YES . IF YES, PLEASE LIST: ____WOULD LIKE SOMETHING FOR PAIN UNTIL HER PROCEDURE IN JUL[place], STATES THE TIZANIDINE AND GABAPENTIN AREN'T WORKING . ANY NEW PROBLEMS WITH YOUR MEDICATIONS? NO . WHEN DID YOU LAST EAT? ____ . WHEN DID YOU LAST DRINK? ____ . WHAT DID YOU LAST DRINK? ____ . NAME OF PERSON DRIVING YOU HOME? ____ . DO YOU HAVE ANY OTHER QUESTIONS OR CONCERNS NO . VITAL SIGNS WT 146.2 LBS, HT 66.5 IN, BMI 23.24 INDEX, BP 118/66 MM HG, HR 54 /MIN, RR 16 /MIN, TEMP 98.0 F, OXYGEN SAT % 99%, SAFE IN ENV? (Y/N) YES, REVIEWED BY: JS. EXAMINATION GENERAL EXAMINATION: GENERAL ALERT,NO DISTRESS . PSYCH AFFECT NORMAL . LUNGS: LUNG SOUNDS ARE CLEAR . HEART: HEART RATE REGULAR . MUSCULOSKELETAL: MST 5/5 BILAT. LOWER EXTREMITIES . LUMBAR SACRAL SPINE TENDERNESS BILAT. SIJ R>L. DIAGNOSTIC TESTS REVIEWEDMRI L/S [id number] . ASSESSMENTS SACROILIITIS - M46.1 (PRIMARY) INTERVERTEBRAL DISC DISORDERS WITH RADICULOPATHY, LUMBAR REGION - M51.16 TREATMENT SACROILIITIS START TRAMADOL HCL TABLET, 50 MG, 1 TO 2TAB, ORALLY, Q8H PRN MDD3, 30 DAYS, 45, REFILLS 1 START GABAPENTIN CAPSULE, 100 MG, 1 CAPSULE, ORALLY, BID PRN, 30 DAY(S), 30, REFILLS 1 NOTES: ISTOP REGISTRY REVIEWED AND DEMONSTRATES COMPLLIANCE. , [facility] NARCOTIC AGREEMENT WAS REVIEWED AND SIGNED TODAY BY THE PATIENT. SEE ATTACHED DOCUMENT FOR FULL DETAILS; SPECIFIC ISSUES WERE REVIEWED: 1) KEEP PAIN MEDS IN THEIR ORIGINAL BOTTLES AND ANY WEEKLY PLANNERS ARE TO BE BROUGHT TO THE PAIN CENTER AT EVERY VISIT. 2) THE PATIENT IS NOT TO INCREASE DOSING OR TIMING OF THEIR PAIN MEDICATION WITHOUT SPECIFIC DIRECTION OF THEIR PAIN CENTERPROVIDER (NOT ER OR OTHER PROVIDERS). 3) ALL PAIN MEDS ARE TO BE KEPT SECURED, IN A LOCKED BOX. 4) NO PAIN MEDS ARE TO BE SHARED WITH ANY OTHER PERSON FOR ANY REASON. 5) NO PAIN MEDS MAY BE TAKEN FROM ANY FRIENDS OR RELATIVES FOR ANY REASON 6) NO MEDS OR SUBSTANCES WHICH ARE NOT LEGAL ARE TO BE USED- NO MARIJUANA, NO COCAINE, AMPHETAMINES, HEROIN, OR OTHERS ARE EVER TO BE USED. 7)URINE TESTING IS DONE TO ACCOUNT FOR MEDS AND SUBSTANCES BEING TAKEN AND WILL BE DONE RANDOMLY., RISKS OF NARCOTIC/OPIOD MEDICATIONS INCLUDES BUT IS NOT LIMITED TO RISK OF DEPENDANCE/DEVELOPMENT OF ADDICTION, MOOD DISTURBANCE AND DEPRESSION, OSTEOPOROSIS, HORMONAL AND LABIDAL CHANGES, RESPIRATORY DEPRESSION AND . PATIENT IS ADVISED NOT TO DRIVE OR DRINK ALCOHOL WHILE ON THESE MEDICATIONS. PREVENTIVE MEDICINE PAIN CLINIC TEACHING: MEDICATIONS PRINTED AND REVIEWED INFORMATION ON NEW MEDICATION, TRAMADOL, WITH PATIENT. PATIENT VERBALIZED AN UNDERSTANDING. ALSO REVIEWED NARCOTIC AGREEMENT AND PATIENT SIGNED. NARA BRYANT 07/14/2019 10:33:46 AM > . PROCEDURE CODES FA211 ESTABILISHED PATIENT [facility] CHARGE DISPOSITION & COMMUNICATION FOLLOW UP POST LESI ELECTRONICALLY SIGNED BY KADEEM RODRIGUEZ ON 07/30/2019 AT 09:37 AM EST DISCLAIMER : THIS IS A VISIT SUMMARY EXTRACTED FROM THE [employer] CHART. IT IS NOT A COPY OF THE [employer] PROGRESS NOTE. THIERNOD
== END ==
LOC: M PAIN 09:30
PROVIDERS: ATTEND Nurse Practitioner Family
DX: M46.1 Sacroiliitis, not elsewhere classified (principal); M51.16 Intervertebral disc disorders with radiculopathy, lumbar region; J45.909 Unspecified asthma, uncomplicated; Z86.59 Personal history of other mental and behavioral disorders; G47.00 Insomnia, unspecified; Z79.899 Other long term (current) drug therapy

== ENCOUNTER → 2019-08-04 | Outpatient (CLI) | payer OTHER ==
[~2019-08-04] MED LIST changes: +ISOVUE-M 300 61% 15ML VIAL (Q9967) As Ordered ONE; +LIDOCAINE 1% SDV INJ 30 ML VIAL As Ordered ONE; +diazePAM 5 MG TAB As Ordered ONE; +methylPREDNISolone SUSP 40 MG/ML (DEPO-medrol) VIAL (J1030) As Ordered ONE; +oxyCODONE 5MG TAB As Ordered ONE
--- NOTE | 2019-08-04 14:38 | REP ---
Partial lumbar spine series: Three views . History: Injection procedure for pain. Six seconds of fluoroscopy time is reported. Findings: A sequence of three fluoroscopically obtained last image hold procedural spot radiographs of the lumbar spine document needle position and contrast injection associated with injection procedure. Electronically Signed by Lane Golden MD 08/04/2019 02:29 P
--- NOTE | 2019-08-11 02:59 | ECWPNPC ---
PATIENT NAME: LAYNE CARSON : 1975 GENDER: FEMALE VISIT DATE: 08/04/2019 DISCHARGE DATE: 08/04/19 1051 VISIT LOCKED DATE TIME: PHYSICIAN: JOSEP WAGNER MD RESOURCE: JOSEP WAGNER MD REASON FOR APPOINTMENT 1. LESI HISTORY OF PRESENT ILLNESS HISTORY OF PRESENT ILLNESS: PAIN THE PATIENT DESCRIBES THE PAIN... FALL RISK SCREENING: SCREENING :NO FALLS REPORTED IN THE LAST YEAR CURRENT MEDICATIONS TAKING LEXAPRO 10 MG TABLET 1 TABLET ORALLY ONCE A DAY, NOTES: 08/03 2130 TAKING TRAZODONE HCL 50 MG TABLET 1 TABLET AT BEDTIME NEEDED ORALLY DAILY, NOTES: 08/03 2130 TAKING SINGULAIR 10 MG TABLET 1 TABLET ORALLY ONCE A DAY, NOTES: 08/03 2130 TAKING PEPCID 20 MG TABLET 1 TABLET AT BEDTIME NEEDED ORALLY ONCE A DAY, NOTES: NONE RECENT TAKING MULTIVITAMINS TABLET 1 ORALLY DAILY, NOTES: 08/03 2130 TAKING ALBUTEROL SULFATE HFA 108 (90 BASE) MCG/ACT AEROSOL SOLUTION 2 PUFFS INHALATION NEEDED, NOTES: NONE RECENT TAKING TRAMADOL HCL 50 MG TABLET 1 TO 2TAB ORALLY Q8H PRN MDD3, NOTES: 08/02 TAKING GABAPENTIN 100 MG CAPSULE 1 CAPSULE ORALLY BID PRN, NOTES: 08/02 NOT-TAKING TIZANIDINE HCL 4 MG TABLET 1 TABLET NEEDED ORALLY THREE TIMES A DAY NOT-TAKING CYMBALTA 60 MG 1 TABLET PO ONCE DAILY NOT-TAKING MELATONIN 3 MG TABLET 1 TAB ORALLY NIGHTLY NOT-TAKING ADVAIR DISKUS 250-50 MCG/DOSE MISCELLANEOUS 1 INHALATION ONCE DAILY NOT-TAKING NEXIUM 40 MG CAPSULE DELAYED RELEASE DIRECTED ORALLY PRN DISCONTINUED GABAPENTIN 100 MG CAPSULE 1 CAPSULE ORALLY ONCE A DAY, NOTES: DUPLICATE MEDICATION LIST REVIEWED AND RECONCILED WITH THE PATIENT PAST MEDICAL HISTORY ASTHMA ANXIETY INSOMNIA SEASONAL ALLERGIES GOITER/REMOVED DEPRESSION CYSTOCELE CHRONIC BACK PAIN ALLERGIES N.K.D.A. SURGICAL HISTORY THYROIDECTOMY/PARTIAL---BENIGN 02/2010 TUBAL LIGATION 03/30 RIGHT BREAST LUMP REMOVED/BENIGN 2000 SINUS SURGERY 2018 BLADDER SLING 03/2019 FAMILY HISTORY FATHER: ALIVE, HTN , HYPERLIPIDEMIA, DIAGNOSED WITH OTHER MALIGNANT NEOPLASM OF UNSPECIFIED SITE MOTHER: ALIVE, HTN, HYPERLIPIDEMIA, HYPERTENSION, UNSPECIFIED NONPSYCHOTIC MENTAL DISORDER FOLLOWING ORGANIC BRAIN DAMAGE MATERNAL AUNT: ALIVE, BREAST CANCER AGE 78, OTHER MALIGNANT NEOPLASM OF UNSPECIFIED SITE 3 BROTHER(S) . 1 SON(S) , 3 DAUGHTER(S) - HEALTHY. 2 BROTHERS - SKIN CANCER1 BROTHER . SOCIAL HISTORY GENERAL: TOBACCO USE ARE YOU A:: NEVER SMOKER. OTHERS AT HOME: SPOUSE, CHILDREN. EDUCATION LEVEL OF EDUCATION:HIGH SCHOOL DIET: REGULAR/NO ED. LANGUAGE LANGUAGES SPOKEN:GEORGIAN DOMESTIC VIOLENCE NONE. RECREATIONAL DRUG USE DENIES. EXERCISE: NO REGULAR EXERCISE. LEARNING BARRIERS / SPECIAL NEEDS CHANGE FROM LAST VISIT?NO BARRIERS TO LEARNING?NO HEARING IMPAIRED?NO VISION IMPAIRED?NO COGNITIVELY IMPAIRED?NO READINESS TO LEARN?YES PAIN CLINIC PFS, CLERGY, PUBLIC HEALTH REFERRALS HAS THE PATIENT BEEN EDUCATED REGARDING HIS/HER PLAN OF CARE?YES HAS THE PATIENT BEEN EDUCATED REGARDING PAIN, THE RISK FOR PAIN, THE IMPORTANCE OF EFFECTIVE PAIN MANAGEMENT, AND THE PAIN ASSESSMENT PROCESS?YES LATEX QUESTIONNAIRE LATEX ALLERGY : HAVE YOU EVER DEVELOPED ANY TYPE OF REACTION AFTER HANDLING LATEX PRODUCTS SUCH RUBBER GLOVES, CONDOMS, DIAPHRAGMS, BALLOONS, SOCKS, OR UNDERWEAR?NO LATEX ALLERGY : HAVE YOU EVER DEVELOPED ANY TYPE OF REACTION DURING OR AFTER DENTAL APPOINTMENT, VAGINAL/RECTAL EXAMINATION, SURGICAL PROCEDURE, OR ANY OTHER EXPOSURE?NO LATEX RISK : HAVE YOU EVER HAD ANY DIFFICULTY BREATHING OR HIVES AFTER EATING OR HANDLING ANY FRUITS, OR VEGETABLES; SUCH KIWI, BANANAS, STONE FRUITS, OR CHESTNUTSNO LATEX RISK : DO YOU HAVE A PREVIOUS PERSONAL HISTORY OF MORE THAN NINE SURGERIES, SPINA BIFIDA, OR REPEATED CATHERIZATIONS? NO LATEX RISK : ARE YOU FREQUENTLY EXPOSED TO LATEX PRODUCTS IN YOUR OCCUPATION?NO DATE ASKED : 06/25/2019 CAFFEINE CAFFEINE USE?YES COFFEE 3-4 TIMES A DAY ADVANCE DIRECTIVE ADVANCE DIRECTIVE DISCUSSED WITH PATIENT:YES 08/04/19 PT. STATES SHE HAS LIVING WILL AND POA. PT DOES NOT HAVE HCP AND DECLINES INFO AND ASSISTANCE WITH FORM AT THIS TIME. AD JUDAISM JUDAISM NO DENOMINATIONAL BELIEFS THAT WOULD IMPACT HEALTH CARE. MARITAL STATUS: . 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 REVIEWED WITH PATIENT 06/25/19 0910 BVREVIEWED WITH PATIENT 07/14/19 0900 JSPRE SCREENING INTERVIEW 07/26/19 LAS. HOSPITALIZATION/MAJOR DIAGNOSTIC PROCEDURE SEE ABOVE AND CHILDBIRTH X4 REVIEW OF SYSTEMS REVIEWED BY: PROVIDER: . CONSTITUTIONAL: ANY CHANGE IN YOUR MEDICAL CONDITION? NO . CHILLS NO . FEVER NO . INFECTION: DO YOU HAVE NEW INFECTIONS? NO . DO YOU HAVE HISTORY OF MRSA? NO . MUSCULOSKELETAL: ANY NEW PATTERNS OF PAIN OR NUMBNESS? NO . GASTROENTEROLOGY: ANY NEW CHANGE IN BOWEL CONTROL? NO . GENITOURINARY: ANY NEW CHANGE IN BLADDER CONTROL? NO . IS THERE A CHANCE YOU COULD BE ? NO . HEMATOLOGY/LYMPH: DO YOU TAKE ANY BLOOD THINNERS? (FOR EXAMPLE- COUMADIN, PLAVIX, AGGRENOX, PLATEL, PRADAXA, OR XARELTO) NO . WHEN WAS YOUR LAST DOSE? DATE: TIME: . NEUROLOGY: HAVE YOU FALLEN IN THE PAST 12 MONTHS? NO . ANY NEW EXTREMITY NUMBNESS OR WEAKNESS? NO . CARDIOLOGY: DO YOU HAVE A PACEMAKER OR DEFIBRILLATOR? NO . RESPIRATORY: HAVE YOU BEEN SICK IN THE PAST WEEK? NO . FEVER NO . FLU LIKE SYMPTOMS? NO . COUGH NO . INTEGUMENTARY: DO YOU HAVE ANY RASHES OR OPEN SORES? NO . ALLERGIC/IMMUNO: ARE YOU ALLERGIC TO IV DYE? NO . ANY NEW ALLERGIES? NO . PSYCHIATRIC: DO YOU HAVE THOUGHTS OF HURTING YOURSELF OR SOMEONE ELSE? NO . ARE YOU ABUSED, NEGLECTED, OR IN AN UNSAFE ENVIRONMENT? NO . ENDOCRINOLOGY: ARE YOU DIABETIC? NO . OTHER: DO YOU NEED ANY PRESCRIPTIONS? NO . IF YES, PLEASE LIST: ____ . ANY NEW PROBLEMS WITH YOUR MEDICATIONS? NO . WHEN DID YOU LAST EAT? 08/03 2030 . WHEN DID YOU LAST DRINK? 08/03 2130 . WHAT DID YOU LAST DRINK? WATER . NAME OF PERSON DRIVING YOU HOME? WILLIAM CARSON . DO YOU HAVE ANY OTHER QUESTIONS OR CONCERNS NO . VITAL SIGNS WT 143.2 LBS, HT 66.5 IN, BMI 22.76 INDEX, BP 119/55 MM HG, HR 50 /MIN, RR 16 /MIN, TEMP 97.1 F, OXYGEN SAT % 100%, SAFE IN ENV? (Y/N) Y, NA INITIALS SC 09:30, REVIEWED BY: WILLIAM, LMP: 07/23. ASSESSMENTS INTERVERTEBRAL DISC DISORDERS WITH RADICULOPATHY, LUMBAR REGION - M51.16 (PRIMARY) TREATMENT INTERVERTEBRAL DISC DISORDERS WITH RADICULOPATHY, LUMBAR REGION [facility] FLUORO GUIDE SPINE INJECTION (PAIN)[id number] PROCEDURES PRE PROCEDURE DIAGNOSIS LUMBAR DISC DISORDER WITH RADICULOPATHY POST PROCEDURE DIAGNOSIS LUMBAR DISC DISORDER WITH RADICULOPATHY PROCEDURE LUMBAR EPIDURAL STEROID INJECTION UNDER FLUOROSCOPIC GUIDANCE SURGEON DR. JOSEP WAGNER WAREHOUSE SHIPPING CLERK NONE ANESTHESIA LOCAL PRE PROCEDURE NOTE THE PATIENT HAS A HISTORY OF CHRONIC LOW BACK PAIN. I EVALUATED THE PATIENT AND REVIEWED THE CHART. I WENT OVER THE RISKS, ALTERNATIVES, AND BENEFITS ASSOCIATED WITH THIS PROCEDURE. THE PATIENT WOULD LIKE TO PROCEED AND GIVES CONSENT TO PERFORM THE PROCEDURE. THE PATIENT DENIES UNEXPLAINABLE WEIGHT LOSS, FEVER, CHILLS, OR NEW CHANGES IN URINARY OR BOWEL CONTROL. DESCRIPTION OF PROCEDURE THE PATIENT WAS BROUGHT TO THE PROCEDURE ROOM AND PLACED IN THE PRONE POSITION. THE LUMBOSACRAL AREA WAS CLEANED WITH BETADINE SOLUTION AND DRAPED ASEPTICALLY. THE PROCEDURE WAS DONE UNDER STERILE CONDITIONS. I CHECKED LATERALITY AND THE LEVEL WHERE THE PROCEDURE WAS GOING TO BE PERFORMED WITH THE PATIENT AND THE SUPPORTING STAFF AT THE MOMENT OF THE TIME OUT IN THE PROCEDURE ROOM. UNDER FLUOROSCOPIC GUIDANCE, THE TARGET POINT WAS SELECTED AT THE INTERLAMINAR LEVEL OF L4-L5. LIDOCAINE WAS USED TO NUMB THE SKIN AND THE SUBCUTANEOUS TISSUE BELOW IT. EPIDURAL TUOHY NEEDLE, 17-GAUGE, WAS ADVANCED UNDER FLUOROSCOPIC GUIDANCE AND FOLLOWING PATIENT FEEDBACK UNTIL THE EPIDURAL SPACE WAS REACHED, 7 CM DEEP INTO THE SKIN BY THE LOSS OF RESISTANCE TECHNIQUE. ISOVUE M DYE 30%, 0.25 ML, WAS INJECTED SHOWING ADEQUATE SPREAD OF THE DYE. THEN, A SOLUTION OF 3 ML OF NORMAL SALINE WITH DEPO-MEDROL 60 MG WAS INJECTED SLOWLY FOLLOWING PATIENT FEEDBACK. THERE WAS NO EVIDENCE OF BLOOD, PARESTHESIA OR CEREBROSPINAL FLUID DURING THE PROCEDURE. THE PATIENT WAS SENT TO THE RECOVERY ROOM. THE PATIENT WAS MOVING THE EXTREMITIES AND DOING WELL. THERE WAS NO COMPLICATION DURING THE PROCEDURE. FLUOROSCOPY TIME WAS 6 SECONDS. POST PROCEDURE NOTE THE PATIENT WILL BE SEEN IN A FOLLOW UP IN THE NEXT FEW WEEKS. INSTRUCTIONS WERE GIVEN, QUESTIONS WERE ANSWERED, AND THE PATIENT EXPRESSED UNDERSTANDING AND AGREES WITH THE PLAN. I, PRICILLA RED, DOCUMENTED THE ABOVE INFORMATION ACTING A SCRIBE FOR DR. WAGNER. I HAVE REVIEWED THE ABOVE DOCUMENT, WRITTEN BY PRICILLA DE SANTIAGO AND I VERIFY THAT IT IS ACCURATE. PROCEDURE CODES 60942 LUMBAR/SACRAL W/ IMAGING 6045F RADXPS IN END [id number] PXD DISPOSITION & COMMUNICATION FOLLOW UP 2 WEEKS ELECTRONICALLY SIGNED BY JOSEP WAGNER MD, MD ON 08/10/2019 AT 10:54 AM EST DISCLAIMER : THIS IS A VISIT SUMMARY EXTRACTED FROM THE [employer] CHART. IT IS NOT A COPY OF THE [employer] PROGRESS NOTE. MTDD
== END ==
LOC: M PAIN 09:30
PROVIDERS: ATTEND Anesthesiology
DX: M51.16 Intervertebral disc disorders with radiculopathy, lumbar region (principal); J45.909 Unspecified asthma, uncomplicated; Z86.59 Personal history of other mental and behavioral disorders; G47.00 Insomnia, unspecified; Z79.891 Long term (current) use of opiate analgesic; Z79.899 Other long term (current) drug therapy
CPT/HCPCS: 62323; J1030; Q9967

== ENCOUNTER → 2019-08-23 | Outpatient (CLI) | payer OTHER ==
[~2019-08-23] MED LIST changes: -ISOVUE-M 300 61% 15ML VIAL (Q9967) As Ordered ONE; -LIDOCAINE 1% SDV INJ 30 ML VIAL As Ordered ONE; -diazePAM 5 MG TAB As Ordered ONE; -methylPREDNISolone SUSP 40 MG/ML (DEPO-medrol) VIAL (J1030) As Ordered ONE; -oxyCODONE 5MG TAB As Ordered ONE
--- NOTE | 2019-08-27 03:34 | ECWPNPC ---
PATIENT NAME: LAYNE CARSON : 1975 GENDER: FEMALE VISIT DATE: 08/23/2019 DISCHARGE DATE: 08/23/19 1000 VISIT LOCKED DATE TIME: PHYSICIAN: CHEYENNE HODGSON RESOURCE: CHEYENNE HODGSON REASON FOR APPOINTMENT 1. POST LESI HISTORY OF PRESENT ILLNESS HISTORY OF PRESENT ILLNESS: HERE FOR POST PROCEDURE F/U.HAD LESI ON 08/04/19.REPORTING REDUCTION IN LOW BACK PAIN AND RESOLUTION OF RIGHT POSTERIOR THIGH/HIP PAIN THAT CONTINUES TODAY.REPORTING A CONSTANT RIGHT BUTTOCK ,BURNING PAIN.RATING PAIN VAS IN THIS REGION 2-10.PAIN IS AGGREVATED BY LIFTING AND PROLONGED SITTING,STANDING.STATES TRAMADOL 1 TO 2 TAB AT HS STARTED AT LAST VISIT IS MINIMALLY EFFECTIVE.REPORTING NIGHTTIME AWAKENINGS DUE TO PAIN DESPITE GABAPENTIN AND TRAMADOL. PAIN THE PATIENT DESCRIBES THE PAIN... FALL RISK SCREENING: SCREENING :NO FALLS REPORTED IN THE LAST YEAR CURRENT MEDICATIONS TAKING LEXAPRO 10 MG TABLET 1 TABLET ORALLY ONCE A DAY TAKING TRAZODONE HCL 50 MG TABLET 1 TABLET AT BEDTIME NEEDED ORALLY DAILY TAKING SINGULAIR 10 MG TABLET 1 TABLET ORALLY ONCE A DAY TAKING PEPCID 20 MG TABLET 1 TABLET AT BEDTIME NEEDED ORALLY ONCE A DAY TAKING MULTIVITAMINS TABLET 1 ORALLY DAILY TAKING ALBUTEROL SULFATE HFA 108 (90 BASE) MCG/ACT AEROSOL SOLUTION 2 PUFFS INHALATION NEEDED, NOTES: NEEDED TAKING TRAMADOL HCL 50 MG TABLET 1 TO 2TAB ORALLY Q8H PRN MDD3 TAKING GABAPENTIN 100 MG CAPSULE 1 CAPSULE ORALLY BID PRN NOT-TAKING TIZANIDINE HCL 4 MG TABLET 1 TABLET NEEDED ORALLY THREE TIMES A DAY NOT-TAKING CYMBALTA 60 MG 1 TABLET PO ONCE DAILY NOT-TAKING MELATONIN 3 MG TABLET 1 TAB ORALLY NIGHTLY NOT-TAKING ADVAIR DISKUS 250-50 MCG/DOSE MISCELLANEOUS 1 INHALATION ONCE DAILY NOT-TAKING NEXIUM 40 MG CAPSULE DELAYED RELEASE DIRECTED ORALLY PRN MEDICATION LIST REVIEWED AND RECONCILED WITH THE PATIENT PAST MEDICAL HISTORY ASTHMA ANXIETY INSOMNIA SEASONAL ALLERGIES GOITER/REMOVED DEPRESSION CYSTOCELE CHRONIC BACK PAIN ALLERGIES N.K.D.A. SURGICAL HISTORY THYROIDECTOMY/PARTIAL---BENIGN 02/2010 TUBAL LIGATION 03/30 RIGHT BREAST LUMP REMOVED/BENIGN 2000 SINUS SURGERY 2018 BLADDER SLING 03/2019 FAMILY HISTORY FATHER: ALIVE, HTN , HYPERLIPIDEMIA, DIAGNOSED WITH OTHER MALIGNANT NEOPLASM OF UNSPECIFIED SITE MOTHER: ALIVE, HTN, HYPERLIPIDEMIA, HYPERTENSION, UNSPECIFIED NONPSYCHOTIC MENTAL DISORDER FOLLOWING ORGANIC BRAIN DAMAGE MATERNAL AUNT: ALIVE, BREAST CANCER AGE 78, OTHER MALIGNANT NEOPLASM OF UNSPECIFIED SITE 3 BROTHER(S) . 1 SON(S) , 3 DAUGHTER(S) - HEALTHY. 2 BROTHERS - SKIN CANCER1 BROTHER . SOCIAL HISTORY GENERAL: TOBACCO USE ARE YOU A:: NEVER SMOKER. OTHERS AT HOME: SPOUSE, CHILDREN. EDUCATION LEVEL OF EDUCATION:HIGH SCHOOL DIET: REGULAR/NO ED. LANGUAGE LANGUAGES SPOKEN:BENGALI DOMESTIC VIOLENCE NONE. RECREATIONAL DRUG USE DENIES. EXERCISE: NO REGULAR EXERCISE. LEARNING BARRIERS / SPECIAL NEEDS CHANGE FROM LAST VISIT?NO BARRIERS TO LEARNING?NO HEARING IMPAIRED?NO VISION IMPAIRED?NO COGNITIVELY IMPAIRED?NO READINESS TO LEARN?YES PAIN CLINIC PFS, CLERGY, PUBLIC HEALTH REFERRALS HAS THE PATIENT BEEN EDUCATED REGARDING HIS/HER PLAN OF CARE?YES HAS THE PATIENT BEEN EDUCATED REGARDING PAIN, THE RISK FOR PAIN, THE IMPORTANCE OF EFFECTIVE PAIN MANAGEMENT, AND THE PAIN ASSESSMENT PROCESS?YES LATEX QUESTIONNAIRE LATEX ALLERGY : HAVE YOU EVER DEVELOPED ANY TYPE OF REACTION AFTER HANDLING LATEX PRODUCTS SUCH RUBBER GLOVES, CONDOMS, DIAPHRAGMS, BALLOONS, SOCKS, OR UNDERWEAR?NO LATEX ALLERGY : HAVE YOU EVER DEVELOPED ANY TYPE OF REACTION DURING OR AFTER DENTAL APPOINTMENT, VAGINAL/RECTAL EXAMINATION, SURGICAL PROCEDURE, OR ANY OTHER EXPOSURE?NO LATEX RISK : HAVE YOU EVER HAD ANY DIFFICULTY BREATHING OR HIVES AFTER EATING OR HANDLING ANY FRUITS, OR VEGETABLES; SUCH KIWI, BANANAS, STONE FRUITS, OR CHESTNUTSNO LATEX RISK : DO YOU HAVE A PREVIOUS PERSONAL HISTORY OF MORE THAN NINE SURGERIES, SPINA BIFIDA, OR REPEATED CATHERIZATIONS? NO LATEX RISK : ARE YOU FREQUENTLY EXPOSED TO LATEX PRODUCTS IN YOUR OCCUPATION?NO DATE ASKED : 06/25/2019 CAFFEINE CAFFEINE USE?YES COFFEE 3-4 TIMES A DAY ADVANCE DIRECTIVE ADVANCE DIRECTIVE DISCUSSED WITH PATIENT:YES 08/23/19 PT STATES SHE HAS LIVING WILL AND POA. PT DOES NOT HAVE HCP AND DECLINES INFO AND ASSISTANCE WITH FORM AT THIS TIME. JS SIKH SIKH NO CATHOLIC BELIEFS THAT WOULD IMPACT HEALTH CARE. MARITAL STATUS: . 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 REVIEWED WITH PATIENT 06/25/19 1539 BVREVIEWED WITH PATIENT 07/14/19 0953 JSPRE SCREENING INTERVIEW 07/26/19 LAS REVIEWED WITH PATIENT 08/23/19 0988 JS. HOSPITALIZATION/MAJOR DIAGNOSTIC PROCEDURE SEE ABOVE AND CHILDBIRTH X4 REVIEW OF SYSTEMS REVIEWED BY: PROVIDER: CHEYENNE QUAN . CONSTITUTIONAL: ANY CHANGE IN YOUR MEDICAL CONDITION? NO . CHILLS NO . FEVER NO . INFECTION: DO YOU HAVE NEW INFECTIONS? NO . DO YOU HAVE HISTORY OF MRSA? NO . MUSCULOSKELETAL: ANY NEW PATTERNS OF PAIN OR NUMBNESS? NO . GASTROENTEROLOGY: ANY NEW CHANGE IN BOWEL CONTROL? NO . GENITOURINARY: ANY NEW CHANGE IN BLADDER CONTROL? NO . IS THERE A CHANCE YOU COULD BE ? NO . HEMATOLOGY/LYMPH: DO YOU TAKE ANY BLOOD THINNERS? (FOR EXAMPLE- COUMADIN, PLAVIX, AGGRENOX, PLATEL, PRADAXA, OR XARELTO) NO . WHEN WAS YOUR LAST DOSE? DATE: TIME: . NEUROLOGY: HAVE YOU FALLEN IN THE PAST 12 MONTHS? NO . ANY NEW EXTREMITY NUMBNESS OR WEAKNESS? NO . CARDIOLOGY: DO YOU HAVE A PACEMAKER OR DEFIBRILLATOR? NO . RESPIRATORY: HAVE YOU BEEN SICK IN THE PAST WEEK? NO . FEVER NO . FLU LIKE SYMPTOMS? NO . COUGH NO . INTEGUMENTARY: DO YOU HAVE ANY RASHES OR OPEN SORES? NO . ALLERGIC/IMMUNO: ARE YOU ALLERGIC TO IV DYE? NO . ANY NEW ALLERGIES? NO . PSYCHIATRIC: DO YOU HAVE THOUGHTS OF HURTING YOURSELF OR SOMEONE ELSE? NO . ARE YOU ABUSED, NEGLECTED, OR IN AN UNSAFE ENVIRONMENT? NO . ENDOCRINOLOGY: ARE YOU DIABETIC? NO . OTHER: DO YOU NEED ANY PRESCRIPTIONS? NO . IF YES, PLEASE LIST: ____ . ANY NEW PROBLEMS WITH YOUR MEDICATIONS? NO . WHEN DID YOU LAST EAT? ____ . WHEN DID YOU LAST DRINK? ____ . WHAT DID YOU LAST DRINK? ____ . NAME OF PERSON DRIVING YOU HOME? ____ . DO YOU HAVE ANY OTHER QUESTIONS OR CONCERNS YES, STATES THAT THE TRAMADOL NOT HELPING AT ALL WITH THE PAIN . VITAL SIGNS WT 140.0 LBS, HT 66.5 IN, BMI 22.26 INDEX, BP 105/63 MM HG, HR 68 /MIN, RR 16 /MIN, TEMP 96.9 F, OXYGEN SAT % 99%, SAFE IN ENV? (Y/N) YES, NA INITIALS DC 09:23, REVIEWED BY: MANAS. EXAMINATION GENERAL EXAMINATION: GENERAL ALERT,NO DISTRESS . PSYCH AFFECT NORMAL . LUNGS: LUNG SOUNDS ARE CLEAR . HEART: HEART RATE REGULAR . MUSCULOSKELETAL: MST 5/5 BILAT. LOWER EXTREMITIES . FOR BILAT. SIJ TENDERNESS BILAT. SIJ R>L.POSITIVE ARACELIS TEST -RIGHT LEG. DIAGNOSTIC TESTS REVIEWEDMRI L/S [id number] . ASSESSMENTS SACROILIITIS - M46.1 (PRIMARY) TREATMENT SACROILIITIS CONTINUE GABAPENTIN CAPSULE, 100 MG, 1 CAPSULE, ORALLY, BID PRN REFILL TRAMADOL HCL TABLET, 50 MG, 1 TO 2TAB, ORALLY, Q8H PRN MDD3, 30 DAYS, 45, REFILLS 1 NOTES: RIGHT SIJ, ISTOP REGISTRY REVIEWED AND DEMONSTRATES COMPLLIANCE. RECOMMEND BRINGING IN MEDICATION EVERY VISIT. , RISKS OF NARCOTIC/OPIOD MEDICATIONS INCLUDES BUT IS NOT LIMITED TO RISK OF DEPENDANCE/DEVELOPMENT OF ADDICTION, MOOD DISTURBANCE AND DEPRESSION, OSTEOPOROSIS, HORMONAL AND LABIDAL CHANGES, RESPIRATORY DEPRESSION AND . PATIENT IS ADVISED NOT TO DRIVE OR DRINK ALCOHOL WHILE ON THESE MEDICATIONS. OTHERS NOTES: SACROILIAC JOINT PAIN MATERIAL WAS PRINTED. PREVENTIVE MEDICINE PAIN CLINIC TEACHING: PROCEDURE TEACHING PRINTED AND REVIEWED INFORMATION ON SACROILIAC JOINT INJECTION PROCEDURE WITH PATIENT. ALSO REVIEWED PRE-PROCEDURE INSTRUCTIONS. PATIENT VERBALIZED AN UNDERSTANDING. NARA BRYANT 08/23/2019 11:32:30 AM > . PROCEDURE CODES FA211 ESTABILISHED PATIENT [facility] CHARGE DISPOSITION & COMMUNICATION FOLLOW UP POST (REASON: RIGHT SIJ) ELECTRONICALLY SIGNED BY KADEEM RODRIGUEZ ON 08/26/2019 AT 01:46 PM EST DISCLAIMER : THIS IS A VISIT SUMMARY EXTRACTED FROM THE [employer] CHART. IT IS NOT A COPY OF THE [employer] PROGRESS NOTE. VERN
== END ==
LOC: M PAIN 09:15
PROVIDERS: ATTEND Nurse Practitioner Family
DX: M46.1 Sacroiliitis, not elsewhere classified (principal)

== ENCOUNTER → 2019-09-16 | Outpatient (CLI) | payer OTHER ==
[~2019-09-16] MED LIST changes: +BUPIVACAINE HCL 0.25% 30 ML VIAL As Ordered ONE; +ISOVUE-M 300 61% 15ML VIAL (Q9967) As Ordered ONE; +LIDOCAINE 1% SDV INJ 30 ML VIAL As Ordered ONE; +TRIAMCINOLONE ACETONIDE SUSP 40 MG/ML VIAL (J3301) As Ordered ONE; +diazePAM 5 MG TAB As Ordered ONE; +oxyCODONE 5MG TAB As Ordered ONE
--- NOTE | 2019-09-16 18:02 | REP ---
SI joint series: Two views. History: Bilateral SI joint injection for pain. 26 seconds of fluoroscopy time is reported. Findings: A sequence of two last image hold fluoroscopically obtained spot radiographs document needle position and contrast injection associated with SI joint injection procedure. Electronically Signed by Lane Golden MD 09/16/2019 05:53 P
--- NOTE | 2019-10-01 02:48 | ECWPNPC ---
PATIENT NAME: LAYNE CARSON : 1975 GENDER: FEMALE VISIT DATE: 09/16/2019 DISCHARGE DATE: 09/16/19 1726 VISIT LOCKED DATE TIME: PHYSICIAN: JOSEP WAGNER MD RESOURCE: JOSEP WAGNER MD REASON FOR APPOINTMENT 1. BILATERAL SIJ HISTORY OF PRESENT ILLNESS HISTORY OF PRESENT ILLNESS: PAIN THE PATIENT DESCRIBES THE PAIN... FALL RISK SCREENING: SCREENING :NO FALLS REPORTED IN THE LAST YEAR CURRENT MEDICATIONS TAKING LEXAPRO 10 MG TABLET 1 TABLET ORALLY ONCE A DAY, NOTES: 09/15 2099 TAKING TRAZODONE HCL 50 MG TABLET 1 TABLET AT BEDTIME NEEDED ORALLY DAILY, NOTES: 09/15 2099 TAKING SINGULAIR 10 MG TABLET 1 TABLET ORALLY ONCE A DAY, NOTES: 09/15 2099 TAKING PEPCID 20 MG TABLET 1 TABLET AT BEDTIME NEEDED ORALLY ONCE A DAY, NOTES: NONE RECENT TAKING MULTIVITAMINS TABLET 1 ORALLY DAILY, NOTES: 09/15 2099 TAKING ALBUTEROL SULFATE HFA 108 (90 BASE) MCG/ACT AEROSOL SOLUTION 2 PUFFS INHALATION NEEDED, NOTES: NEEDED NONE RECENT TAKING GABAPENTIN 100 MG CAPSULE 1 CAPSULE ORALLY BID PRN, NOTES: NONE RECENT TAKING TRAMADOL HCL 50 MG TABLET 1 TO 2TAB ORALLY Q8H PRN MDD3, NOTES: NONE RECENT NOT-TAKING TIZANIDINE HCL 4 MG TABLET 1 TABLET NEEDED ORALLY THREE TIMES A DAY NOT-TAKING CYMBALTA 60 MG 1 TABLET PO ONCE DAILY NOT-TAKING MELATONIN 3 MG TABLET 1 TAB ORALLY NIGHTLY NOT-TAKING ADVAIR DISKUS 250-50 MCG/DOSE MISCELLANEOUS 1 INHALATION ONCE DAILY NOT-TAKING NEXIUM 40 MG CAPSULE DELAYED RELEASE DIRECTED ORALLY PRN MEDICATION LIST REVIEWED AND RECONCILED WITH THE PATIENT PAST MEDICAL HISTORY ASTHMA ANXIETY INSOMNIA SEASONAL ALLERGIES GOITER/REMOVED DEPRESSION CYSTOCELE CHRONIC BACK PAIN ALLERGIES N.K.D.A. SURGICAL HISTORY THYROIDECTOMY/PARTIAL---BENIGN 02/2010 TUBAL LIGATION 03/30 RIGHT BREAST LUMP REMOVED/BENIGN 2000 SINUS SURGERY 2018 BLADDER SLING 03/2019 FAMILY HISTORY FATHER: ALIVE, HTN , HYPERLIPIDEMIA, DIAGNOSED WITH OTHER MALIGNANT NEOPLASM OF UNSPECIFIED SITE MOTHER: ALIVE, HTN, HYPERLIPIDEMIA, HYPERTENSION, UNSPECIFIED NONPSYCHOTIC MENTAL DISORDER FOLLOWING ORGANIC BRAIN DAMAGE MATERNAL AUNT: ALIVE, BREAST CANCER AGE 78, OTHER MALIGNANT NEOPLASM OF UNSPECIFIED SITE 3 BROTHER(S) . 1 SON(S) , 3 DAUGHTER(S) - HEALTHY. 2 BROTHERS - SKIN CANCER1 BROTHER . SOCIAL HISTORY GENERAL: TOBACCO USE ARE YOU A:: NEVER SMOKER. OTHERS AT HOME: SPOUSE, CHILDREN. EDUCATION LEVEL OF EDUCATION:HIGH SCHOOL DIET: REGULAR/NO ED. LANGUAGE LANGUAGES SPOKEN:OCCITAN DOMESTIC VIOLENCE DO YOU FEEL SAFE IN YOUR ENVIRONMENT?YES RECREATIONAL DRUG USE DENIES. EXERCISE: NO REGULAR EXERCISE. LEARNING BARRIERS / SPECIAL NEEDS CHANGE FROM LAST VISIT?NO BARRIERS TO LEARNING?NO HEARING IMPAIRED?NO VISION IMPAIRED?NO COGNITIVELY IMPAIRED?NO READINESS TO LEARN?YES LEARNING PREFERENCES?NO LEARNING CAPABILITIES PRESENT?YES EMOTIONAL BARRIERS?NO SPECIAL DEVICES?NO EXAMINING CHAIR ASSEMBLER NEEDED?NO PAIN CLINIC PFS, CLERGY, PUBLIC HEALTH REFERRALS HAS THE PATIENT BEEN EDUCATED REGARDING HIS/HER PLAN OF CARE?YES HAS THE PATIENT BEEN EDUCATED REGARDING PAIN, THE RISK FOR PAIN, THE IMPORTANCE OF EFFECTIVE PAIN MANAGEMENT, AND THE PAIN ASSESSMENT PROCESS?YES LATEX QUESTIONNAIRE LATEX ALLERGY : HAVE YOU EVER DEVELOPED ANY TYPE OF REACTION AFTER HANDLING LATEX PRODUCTS SUCH RUBBER GLOVES, CONDOMS, DIAPHRAGMS, BALLOONS, SOCKS, OR UNDERWEAR?NO LATEX ALLERGY : HAVE YOU EVER DEVELOPED ANY TYPE OF REACTION DURING OR AFTER DENTAL APPOINTMENT, VAGINAL/RECTAL EXAMINATION, SURGICAL PROCEDURE, OR ANY OTHER EXPOSURE?NO LATEX RISK : HAVE YOU EVER HAD ANY DIFFICULTY BREATHING OR HIVES AFTER EATING OR HANDLING ANY FRUITS, OR VEGETABLES; SUCH KIWI, BANANAS, STONE FRUITS, OR CHESTNUTSNO LATEX RISK : DO YOU HAVE A PREVIOUS PERSONAL HISTORY OF MORE THAN NINE SURGERIES, SPINA BIFIDA, OR REPEATED CATHERIZATIONS? NO LATEX RISK : ARE YOU FREQUENTLY EXPOSED TO LATEX PRODUCTS IN YOUR OCCUPATION?NO DATE ASKED : 09/16/2019 CAFFEINE CAFFEINE USE?YES COFFEE 3-4 TIMES A DAY ADVANCE DIRECTIVE ADVANCE DIRECTIVE DISCUSSED WITH PATIENT:YES 09/16/2019 PT STATES SHE HAS LIVING WILL AND POA. PT DOES NOT HAVE HCP AND DECLINES INFO AND ASSISTANCE WITH FORM AT THIS TIME. AD CONGREGATIONAL CONGREGATIONAL NO ADVENT BELIEFS THAT WOULD IMPACT HEALTH CARE. MARITAL STATUS: . 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 REVIEWED WITH PATIENT 06/25/19 1539 BVREVIEWED WITH PATIENT 07/14/19 0945 JSPRE SCREENING INTERVIEW 07/26/19 LAS REVIEWED WITH PATIENT 08/23/19 0970 JS. HOSPITALIZATION/MAJOR DIAGNOSTIC PROCEDURE SEE ABOVE AND CHILDBIRTH X4 REVIEW OF SYSTEMS REVIEWED BY: PROVIDER: . CONSTITUTIONAL: ANY CHANGE IN YOUR MEDICAL CONDITION? NO . CHILLS NO . FEVER NO . INFECTION: DO YOU HAVE NEW INFECTIONS? NO . DO YOU HAVE HISTORY OF MRSA? NO . MUSCULOSKELETAL: ANY NEW PATTERNS OF PAIN OR NUMBNESS? NO . GASTROENTEROLOGY: ANY NEW CHANGE IN BOWEL CONTROL? NO . GENITOURINARY: ANY NEW CHANGE IN BLADDER CONTROL? NO . IS THERE A CHANCE YOU COULD BE ? NO . HEMATOLOGY/LYMPH: DO YOU TAKE ANY BLOOD THINNERS? (FOR EXAMPLE- COUMADIN, PLAVIX, AGGRENOX, PLATEL, PRADAXA, OR XARELTO) NO . WHEN WAS YOUR LAST DOSE? DATE: TIME: . NEUROLOGY: HAVE YOU FALLEN IN THE PAST 12 MONTHS? NO . ANY NEW EXTREMITY NUMBNESS OR WEAKNESS? NO . CARDIOLOGY: DO YOU HAVE A PACEMAKER OR DEFIBRILLATOR? NO . RESPIRATORY: HAVE YOU BEEN SICK IN THE PAST WEEK? NO . FEVER NO . FLU LIKE SYMPTOMS? NO . COUGH NO . INTEGUMENTARY: DO YOU HAVE ANY RASHES OR OPEN SORES? NO . ALLERGIC/IMMUNO: ARE YOU ALLERGIC TO IV DYE? NO . ANY NEW ALLERGIES? NO . PSYCHIATRIC: DO YOU HAVE THOUGHTS OF HURTING YOURSELF OR SOMEONE ELSE? NO . ARE YOU ABUSED, NEGLECTED, OR IN AN UNSAFE ENVIRONMENT? NO . ENDOCRINOLOGY: ARE YOU DIABETIC? NO . OTHER: DO YOU NEED ANY PRESCRIPTIONS? NO . IF YES, PLEASE LIST: ____ . ANY NEW PROBLEMS WITH YOUR MEDICATIONS? NO . WHEN DID YOU LAST EAT? 09/15 1899 . WHEN DID YOU LAST DRINK? 09/16 1200 . WHAT DID YOU LAST DRINK? [employer] TWIST SODA . NAME OF PERSON DRIVING YOU HOME? WILLIAM CARSON . DO YOU HAVE ANY OTHER QUESTIONS OR CONCERNS NO . VITAL SIGNS WT 145 LBS, HT 66.5 IN, BMI 23.05 INDEX, BP 130/79 MM HG, HR 60 /MIN, RR 16 /MIN, TEMP 97 F, OXYGEN SAT % 100%, SAFE IN ENV? (Y/N) Y, NA INITIALS AW 1401, REVIEWED BY: WILLIAM. ASSESSMENTS SACROILIITIS - M46.1 (PRIMARY) TREATMENT SACROILIITIS [facility] FLUORO GUIDANCE (PAIN)[id number] PROCEDURES PN SI PRE PROCEDURE DIAGNOSIS SACROILIITIS, SACROILIAC JOINT DYSFUNCTION POST PROCEDURE DIAGNOSIS SACROILIITIS, SACROILIAC JOINT DYSFUNCTION PROCEDURE BILATERAL SACROILIAC JOINT BLOCK SURGEON DR. JOSEP WAGNER CORK TILE FLOOR LAYER NONE ANESTHESIA LOCAL PRE PROCEDURE NOTE PATIENT WITH HISTORY OF CHRONIC LOW BACK PAIN. I EVALUATED THE PATIENT AND REVIEWED THE CHART. I WENT OVER THE RISKS, ALTERNATIVES AND BENEFITS ASSOCIATED WITH THIS PROCEDURE. THE PATIENT WOULD LIKE TO PROCEED AND GAVE CONSENT TO PERFORM THE PROCEDURE. THE PATIENT DENIES UNEXPLAINABLE WEIGHT LOSS, FEVER, CHILLS, OR NEW CHANGES IN URINARY OR BOWEL CONTROL DESCRIPTION OF PROCEDURE THE PATIENT WAS BROUGHT TO THE PROCEDURE ROOM AND PLACED IN THE PRONE POSITION. THE LUMBOSACRAL AREA WAS CLEANED WITH CHLORAPREP SOLUTION AND DRAPED ASEPTICALLY. THE PROCEDURE WAS DONE UNDER STERILE CONDITIONS. I CHECKED LATERALITY AND THE LEVEL WHERE THE PROCEDURE WAS GOING TO BE PERFORMED WITH THE PATIENT AND THE SUPPORTING STAFF AT THE MOMENT OF THE TIMEOUT IN THE PROCEDURE ROOM. UNDER FLUOROSCOPIC GUIDANCE, TARGET POINTS WERE SELECTED AT THE LOWER BORDER OF THE RIGHT AND LEFT SACROILIAC JOINTS. TARGET POINTS WERE SELECTED AFTER MEDIAL ROTATION AND TILT OF THE MAGNIFIER OF THE C-ARM. LIDOCAINE WAS USED TO NUMB THE SKIN AND SUBCUTANEOUS TISSUE BELOW IT. A SPINAL NEEDLE, 22-GAUGE, WAS ADVANCED UNDER FLUOROSCOPIC GUIDANCE AND FOLLOWING PATIENT FEEDBACK UNTIL THE TARGET AREA WAS TOUCHED. THE POSITION OF THE NEEDLE WAS VERIFIED WITH AP AND LATERAL VIEWS. AFTER PROPER POSITION OF THE NEEDLE WAS ACHIEVED, ISOVUE M DYE 30%, 0.25 ML, WAS INJECTED SHOWING SPREAD OF THE DYE. THEN, A SOLUTION OF 30 MG OF KENALOG WAS INJECTED IN RIGHT AND LEFT JOINTS WITH 3 ML OF BUPIVACAINE 0.125%. THERE WAS NO EVIDENCE OF BLOOD, PARESTHESIA OR CEREBROSPINAL FLUID DURING THE PROCEDURE. THE PATIENT WAS SENT TO THE RECOVERY ROOM. THE PATIENT WAS MOVING THE EXTREMITIES AND DOING WELL. THERE WAS NO COMPLICATION DURING THE PROCEDURE. FLUOROSCOPY TIME WAS 26 SECONDS POST PROCEDURE NOTE THE PATIENT WILL BE SEEN IN A FOLLOWUP IN THE NEXT FEW WEEKS. I AM LOOKING FOR LONG-LASTING PAIN RELIEF WITH THIS INTERVENTION. INSTRUCTIONS WERE GIVEN, QUESTIONS WERE ANSWERED, AND THE PATIENT EXPRESSED UNDERSTANDING AND AGREED WITH THE PLAN. I, YVON MOONEY, DOCUMENTED THE ABOVE INFORMATION ACTING A SCRIBE FOR DR. WAGNER. I HAVE REVIEWED THE ABOVE DOCUMENT, WRITTEN BY ANYI DESAI, AND I VERIFY THAT IT IS ACCURATE PROCEDURE CODES 93577 INJECT SACROILIAC JOINT, MODIFIERS: 50 [id number] RADXPS IN END [id number] PXD DISPOSITION & COMMUNICATION FOLLOW UP 3 WEEKS ELECTRONICALLY SIGNED BY JOSEP WAGNER MD, MD ON 09/30/2019 AT 12:10 PM EST DISCLAIMER : THIS IS A VISIT SUMMARY EXTRACTED FROM THE [employer] CHART. IT IS NOT A COPY OF THE [employer] PROGRESS NOTE. VERN
== END ==
LOC: M PAIN 14:30
PROVIDERS: ATTEND Anesthesiology
DX: M46.1 Sacroiliitis, not elsewhere classified (principal); J45.909 Unspecified asthma, uncomplicated; Z86.59 Personal history of other mental and behavioral disorders; G47.00 Insomnia, unspecified; Z79.891 Long term (current) use of opiate analgesic; Z79.899 Other long term (current) drug therapy
CPT/HCPCS: G0260; J3301; Q9967

== ENCOUNTER → 2019-10-14 | Outpatient (CLI) | payer OTHER ==
[~2019-10-14] MED LIST changes: -BUPIVACAINE HCL 0.25% 30 ML VIAL As Ordered ONE; -ISOVUE-M 300 61% 15ML VIAL (Q9967) As Ordered ONE; -LIDOCAINE 1% SDV INJ 30 ML VIAL As Ordered ONE; -TRIAMCINOLONE ACETONIDE SUSP 40 MG/ML VIAL (J3301) As Ordered ONE; -diazePAM 5 MG TAB As Ordered ONE; -oxyCODONE 5MG TAB As Ordered ONE
--- NOTE | 2019-11-02 02:32 | ECWPNPC ---
PATIENT NAME: LAYNE CARSON : 1975 GENDER: FEMALE VISIT DATE: 10/14/2019 DISCHARGE DATE: 10/14/19 1231 VISIT LOCKED DATE TIME: PHYSICIAN: CHEYENNE HODGSON RESOURCE: CHEYENNE HODGSON REASON FOR APPOINTMENT 1. POST SIJ HISTORY OF PRESENT ILLNESS HISTORY OF PRESENT ILLNESS: HERE FOR POST PROCEDURE FOLLOW-UP. HAD SIJ BILATERAL ON 09/16/2019. REPORTING MARKED REDUCTION IN PAIN FOR 1 WEEK THEN PAIN GRADUALLY RETURNED TO BASELINE. CONTINUES TO BENEFIT FROM LUMBAR EPIDURAL STEROID INJECTION DONE IN JULY 2019. THAT HELPED WITH LOW BACK PAIN AND RIGHT POSTERIOR THIGH AND HIP PAIN. CHIEF AREA OF PAIN IS BILATERAL BUTTOCK AREA. CURRENTLY USING TRAMADOL 1-2 TABLETS NEEDED FOR SEVERE PAIN WITHOUT IMPROVEMENT. TAKING GABAPENTIN 100 MG NEEDED FOR NERVE PAIN, WHICH SHE FINDS SOMEWHAT HELPFUL. DISCUSSED MEDICATION AND TREATMENT OPTIONS. RATING PAIN VAS 3-7/10. PAIN THE PATIENT DESCRIBES THE PAIN... FALL RISK SCREENING: SCREENING :NO FALLS REPORTED IN THE LAST YEAR CURRENT MEDICATIONS TAKING LEXAPRO 10 MG TABLET 1 TABLET ORALLY ONCE A DAY TAKING TRAZODONE HCL 50 MG TABLET 1 TABLET AT BEDTIME NEEDED ORALLY DAILY TAKING SINGULAIR 10 MG TABLET 1 TABLET ORALLY ONCE A DAY TAKING PEPCID 20 MG TABLET 1 TABLET AT BEDTIME NEEDED ORALLY ONCE A DAY TAKING MULTIVITAMINS TABLET 1 ORALLY DAILY TAKING ALBUTEROL SULFATE HFA 108 (90 BASE) MCG/ACT AEROSOL SOLUTION 2 PUFFS INHALATION NEEDED TAKING GABAPENTIN 100 MG CAPSULE 1 CAPSULE ORALLY BID PRN TAKING TRAMADOL HCL 50 MG TABLET 1 TO 2TAB ORALLY Q8H PRN MDD3 NOT-TAKING TIZANIDINE HCL 4 MG TABLET 1 TABLET NEEDED ORALLY THREE TIMES A DAY NOT-TAKING CYMBALTA 60 MG 1 TABLET PO ONCE DAILY NOT-TAKING MELATONIN 3 MG TABLET 1 TAB ORALLY NIGHTLY NOT-TAKING ADVAIR DISKUS 250-50 MCG/DOSE MISCELLANEOUS 1 INHALATION ONCE DAILY NOT-TAKING NEXIUM 40 MG CAPSULE DELAYED RELEASE DIRECTED ORALLY PRN MEDICATION LIST REVIEWED AND RECONCILED WITH THE PATIENT PAST MEDICAL HISTORY ASTHMA ANXIETY INSOMNIA SEASONAL ALLERGIES GOITER/REMOVED DEPRESSION CYSTOCELE CHRONIC BACK PAIN ALLERGIES SEASONAL: ITCHY EYES, RUNNY NOSE - ALLERGY SURGICAL HISTORY THYROIDECTOMY/PARTIAL---BENIGN 02/2010 TUBAL LIGATION 03/30 RIGHT BREAST LUMP REMOVED/BENIGN 2000 SINUS SURGERY 2018 BLADDER SLING 03/2019 FAMILY HISTORY FATHER: ALIVE, HTN , HYPERLIPIDEMIA, DIAGNOSED WITH OTHER MALIGNANT NEOPLASM OF UNSPECIFIED SITE MOTHER: ALIVE, HTN, HYPERLIPIDEMIA, HYPERTENSION, UNSPECIFIED NONPSYCHOTIC MENTAL DISORDER FOLLOWING ORGANIC BRAIN DAMAGE MATERNAL AUNT: ALIVE, BREAST CANCER AGE 78, OTHER MALIGNANT NEOPLASM OF UNSPECIFIED SITE 3 BROTHER(S) . 1 SON(S) , 3 DAUGHTER(S) - HEALTHY. 2 BROTHERS - SKIN CANCER1 BROTHER . SOCIAL HISTORY GENERAL: TOBACCO USE ARE YOU A:: NEVER SMOKER. OTHERS AT HOME: SPOUSE, CHILDREN. EDUCATION LEVEL OF EDUCATION:HIGH SCHOOL DIET: REGULAR/NO ED. LANGUAGE LANGUAGES SPOKEN:KHMER DOMESTIC VIOLENCE DO YOU FEEL SAFE IN YOUR ENVIRONMENT?YES RECREATIONAL DRUG USE DENIES. EXERCISE: NO REGULAR EXERCISE. LEARNING BARRIERS / SPECIAL NEEDS CHANGE FROM LAST VISIT?NO BARRIERS TO LEARNING?NO HEARING IMPAIRED?NO VISION IMPAIRED?NO COGNITIVELY IMPAIRED?NO READINESS TO LEARN?YES LEARNING PREFERENCES?NO LEARNING CAPABILITIES PRESENT?YES EMOTIONAL BARRIERS?NO SPECIAL DEVICES?NO LABORATORY ANIMAL CARE VETERINARIAN NEEDED?NO PAIN CLINIC PFS, CLERGY, PUBLIC HEALTH REFERRALS HAS THE PATIENT BEEN EDUCATED REGARDING HIS/HER PLAN OF CARE?YES HAS THE PATIENT BEEN EDUCATED REGARDING PAIN, THE RISK FOR PAIN, THE IMPORTANCE OF EFFECTIVE PAIN MANAGEMENT, AND THE PAIN ASSESSMENT PROCESS?YES LATEX QUESTIONNAIRE LATEX ALLERGY : HAVE YOU EVER DEVELOPED ANY TYPE OF REACTION AFTER HANDLING LATEX PRODUCTS SUCH RUBBER GLOVES, CONDOMS, DIAPHRAGMS, BALLOONS, SOCKS, OR UNDERWEAR?NO LATEX ALLERGY : HAVE YOU EVER DEVELOPED ANY TYPE OF REACTION DURING OR AFTER DENTAL APPOINTMENT, VAGINAL/RECTAL EXAMINATION, SURGICAL PROCEDURE, OR ANY OTHER EXPOSURE?NO LATEX RISK : HAVE YOU EVER HAD ANY DIFFICULTY BREATHING OR HIVES AFTER EATING OR HANDLING ANY FRUITS, OR VEGETABLES; SUCH KIWI, BANANAS, STONE FRUITS, OR CHESTNUTSNO LATEX RISK : DO YOU HAVE A PREVIOUS PERSONAL HISTORY OF MORE THAN NINE SURGERIES, SPINA BIFIDA, OR REPEATED CATHERIZATIONS? NO LATEX RISK : ARE YOU FREQUENTLY EXPOSED TO LATEX PRODUCTS IN YOUR OCCUPATION?NO DATE ASKED : 10/14/2019 CAFFEINE CAFFEINE USE?YES COFFEE 3-4 TIMES A DAY ADVANCE DIRECTIVE ADVANCE DIRECTIVE DISCUSSED WITH PATIENT:YES 10/14/2019 PT STATES SHE HAS LIVING WILL AND POA. PT DOES NOT HAVE HCP AND DECLINES INFO AND ASSISTANCE WITH FORM AT THIS TIME. AD CHRISTIAN CHRISTIAN NO TAOISM BELIEFS THAT WOULD IMPACT HEALTH CARE. MARITAL STATUS: . 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 REVIEWED WITH PATIENT 06/25/19 1539 BVREVIEWED WITH PATIENT 07/14/19 0953 JSPRE SCREENING INTERVIEW 07/26/19 LAS REVIEWED WITH PATIENT 08/23/19 0925 JS. HOSPITALIZATION/MAJOR DIAGNOSTIC PROCEDURE SEE ABOVE AND CHILDBIRTH X4 REVIEW OF SYSTEMS REVIEWED BY: PROVIDER: CHEYENNE QUAN . CONSTITUTIONAL: ANY CHANGE IN YOUR MEDICAL CONDITION? NO . CHILLS NO . FEVER NO . INFECTION: DO YOU HAVE NEW INFECTIONS? NO . DO YOU HAVE HISTORY OF MRSA? NO . MUSCULOSKELETAL: ANY NEW PATTERNS OF PAIN OR NUMBNESS? NO . GASTROENTEROLOGY: ANY NEW CHANGE IN BOWEL CONTROL? NO . GENITOURINARY: ANY NEW CHANGE IN BLADDER CONTROL? NO . IS THERE A CHANCE YOU COULD BE ? NO . HEMATOLOGY/LYMPH: DO YOU TAKE ANY BLOOD THINNERS? (FOR EXAMPLE- COUMADIN, PLAVIX, AGGRENOX, PLATEL, PRADAXA, OR XARELTO) NO . WHEN WAS YOUR LAST DOSE? DATE: TIME: . NEUROLOGY: HAVE YOU FALLEN IN THE PAST 12 MONTHS? NO . ANY NEW EXTREMITY NUMBNESS OR WEAKNESS? NO . CARDIOLOGY: DO YOU HAVE A PACEMAKER OR DEFIBRILLATOR? NO . RESPIRATORY: HAVE YOU BEEN SICK IN THE PAST WEEK? NO . FEVER NO . FLU LIKE SYMPTOMS? NO . COUGH NO . INTEGUMENTARY: DO YOU HAVE ANY RASHES OR OPEN SORES? NO . ALLERGIC/IMMUNO: ARE YOU ALLERGIC TO IV DYE? NO . ANY NEW ALLERGIES? NO . PSYCHIATRIC: DO YOU HAVE THOUGHTS OF HURTING YOURSELF OR SOMEONE ELSE? NO . ARE YOU ABUSED, NEGLECTED, OR IN AN UNSAFE ENVIRONMENT? NO . ENDOCRINOLOGY: ARE YOU DIABETIC? NO . OTHER: DO YOU NEED ANY PRESCRIPTIONS? NO . IF YES, PLEASE LIST: ____ . ANY NEW PROBLEMS WITH YOUR MEDICATIONS? NO . WHEN DID YOU LAST EAT? ____ . WHEN DID YOU LAST DRINK? ____ . WHAT DID YOU LAST DRINK? ____ . NAME OF PERSON DRIVING YOU HOME? ____ . DO YOU HAVE ANY OTHER QUESTIONS OR CONCERNS NO . VITAL SIGNS WT 144.8 LBS, HT 66.5 IN, BMI 23.02 INDEX, BP 130/76 MM HG, HR 59 /MIN, RR 16 /MIN, TEMP 97.9 F, OXYGEN SAT % 99%, SAFE IN ENV? (Y/N) Y, NA INITIALS AW 1126, REVIEWED BY: WILLIAM. EXAMINATION GENERAL EXAMINATION: GENERAL ALERT,NO DISTRESS . PSYCH AFFECT NORMAL . LUNGS: LUNG SOUNDS ARE CLEAR . HEART: HEART RATE REGULAR . MUSCULOSKELETAL: MST 5/5 BILAT. LOWER EXTREMITIES . LUMBAR:TENDERNESS BILAT. SIJ . DIAGNOSTIC TESTS REVIEWEDMRI L/S [id number] . ASSESSMENTS SACROILIITIS - M46.1 (PRIMARY) TREATMENT SACROILIITIS CONTINUE TRAMADOL HCL TABLET, 50 MG, 1 TO 2TAB, ORALLY, Q8H PRN MDD3, 30 DAYS, 90, REFILLS 2 REFILL GABAPENTIN CAPSULE, 100 MG, 1 CAPSULE, ORALLY, Q8H TID, 30 DAYS, 90, REFILLS 2 NOTES: BILATERAL SIJ, ISTOP REGISTRY REVIEWED AND DEMONSTRATES COMPLLIANCE. PREVENTIVE MEDICINE PAIN CLINIC TEACHING: PROCEDURE TEACHING PRE SACROILIAC JOINT INJECTION INSTRUCTIONS REVIEWED WITH PT. VERBALIZED UNDERSTANDING. . PROCEDURE CODES FA211 ESTABILISHED PATIENT [facility] CHARGE DISPOSITION & COMMUNICATION FOLLOW UP POST (REASON: BILATERAL SIJ) ELECTRONICALLY SIGNED BY KADEEM RODRIGUEZ ON 11/01/2019 AT 03:23 PM EDT DISCLAIMER : THIS IS A VISIT SUMMARY EXTRACTED FROM THE [employer] CHART. IT IS NOT A COPY OF THE [employer] PROGRESS NOTE. MTDD
== END ==
LOC: M PAIN 11:15
PROVIDERS: ATTEND Nurse Practitioner Family
DX: M46.1 Sacroiliitis, not elsewhere classified (principal)

== ENCOUNTER → 2019-12-09 | Outpatient (CLI) | payer OTHER | LOC: M TMPAIN 10:30 → M PAIN 10:30 | PROVIDERS: ATTEND Nurse Practitioner Family | DX: M51.16 Intervertebral disc disorders with radiculopathy, lumbar region (principal); Z79.891 Long term (current) use of opiate analgesic; Z79.899 Other long term (current) drug therapy ==

== ENCOUNTER → 2019-12-24 | Outpatient (CLI) | payer OTHER | LOC: M LABSMTC 11:50 | PROVIDERS: ATTEND Anesthesiology | DX: Z11.59 Encounter for screening for other viral diseases (principal) ==

== ENCOUNTER → 2019-12-27 | Outpatient (CLI) | payer OTHER ==
[~2019-12-27] MED LIST changes: +ISOVUE-M 300 61% 15ML VIAL As Ordered ONE; +LIDOCAINE 1% SDV 30ML VIAL As Ordered ONE; +NORCO, ANEXSIA 5/325MG TABLET (HYDROcodone/ACETAMINOPHEN) As Ordered ONE; +dexameTHASONE 10MG/1ML VIAL PRES.FREE (J1100 PER 1MG) As Ordered ONE; +diazePAM 2 MG TAB As Ordered ONE
--- NOTE | 2019-12-27 12:51 | REP ---
C-ARM VIEWS LUMBAR SPINE: CLINICAL HISTORY: Pain. Three C-arm views of lower lumbar spine are performed during epidural injection performed by Dr. Healy. Needle is seen at the L4-5 level. A small amount of contrast is injected. 9 seconds fluoroscopy time utilized. Electronically Signed by Maurice Hewitt MD 12/27/2019 12:59 P
--- NOTE | 2019-12-28 00:44 | ECWPNPC ---
PATIENT NAME: LAYNE CARSON : 1975 GENDER: FEMALE VISIT DATE: 12/27/2019 DISCHARGE DATE: 12/27/19 1254 VISIT LOCKED DATE TIME: PHYSICIAN: JOSEP WAGNER MD RESOURCE: JOSEP WAGNER MD REASON FOR APPOINTMENT 1. L4-5 LESI HISTORY OF PRESENT ILLNESS HISTORY OF PRESENT ILLNESS: PAIN THE PATIENT DESCRIBES THE PAIN... FALL RISK SCREENING: SCREENING :NO FALLS REPORTED IN THE LAST YEAR CURRENT MEDICATIONS TAKING LEXAPRO 10 MG TABLET 1 TABLET ORALLY ONCE A DAY, NOTES: 12/26/191999 TAKING TRAZODONE HCL 50 MG TABLET 1 TABLET AT BEDTIME NEEDED ORALLY DAILY, NOTES: 12/26/191999 TAKING SINGULAIR 10 MG TABLET 1 TABLET ORALLY ONCE A DAY, NOTES: 12/26/191999 TAKING PEPCID 20 MG TABLET 1 TABLET AT BEDTIME NEEDED ORALLY ONCE A DAY, NOTES: > 1 MONTH TAKING MULTIVITAMINS TABLET 1 ORALLY DAILY, NOTES: 12/26/191999 TAKING ALBUTEROL SULFATE HFA 108 (90 BASE) MCG/ACT AEROSOL SOLUTION 2 PUFFS INHALATION NEEDED, NOTES: > 1 MONTH TAKING TRAMADOL HCL 50 MG TABLET 1 TO 2TAB ORALLY Q8H PRN MDD3, NOTES: 12/25/19 TAKING LYRICA 100 MG CAPSULE 1 CAPSULE ORALLY BID MDD2, NOTES: 12/26/191999 NOT-TAKING TIZANIDINE HCL 4 MG TABLET 1 TABLET NEEDED ORALLY THREE TIMES A DAY NOT-TAKING CYMBALTA 60 MG 1 TABLET PO ONCE DAILY NOT-TAKING MELATONIN 3 MG TABLET 1 TAB ORALLY NIGHTLY NOT-TAKING ADVAIR DISKUS 250-50 MCG/DOSE MISCELLANEOUS 1 INHALATION ONCE DAILY NOT-TAKING NEXIUM 40 MG CAPSULE DELAYED RELEASE DIRECTED ORALLY PRN MEDICATION LIST REVIEWED AND RECONCILED WITH THE PATIENT PAST MEDICAL HISTORY ASTHMA ANXIETY INSOMNIA SEASONAL ALLERGIES GOITER/REMOVED DEPRESSION CYSTOCELE CHRONIC BACK PAIN ALLERGIES SEASONAL: ITCHY EYES, RUNNY NOSE - ALLERGY SURGICAL HISTORY THYROIDECTOMY/PARTIAL---BENIGN 02/2010 TUBAL LIGATION 03/30 RIGHT BREAST LUMP REMOVED/BENIGN 2000 SINUS SURGERY 2018 BLADDER SLING 03/2019 FAMILY HISTORY FATHER: ALIVE, HTN , HYPERLIPIDEMIA, DIAGNOSED WITH OTHER MALIGNANT NEOPLASM OF UNSPECIFIED SITE MOTHER: ALIVE, HTN, HYPERLIPIDEMIA, HYPERTENSION, UNSPECIFIED NONPSYCHOTIC MENTAL DISORDER FOLLOWING ORGANIC BRAIN DAMAGE MATERNAL AUNT: ALIVE, BREAST CANCER AGE 78, OTHER MALIGNANT NEOPLASM OF UNSPECIFIED SITE 3 BROTHER(S) . 1 SON(S) , 3 DAUGHTER(S) - HEALTHY. FATHER - LUNG CANCER2 BROTHERS - SKIN CANCER1 BROTHER . SOCIAL HISTORY GENERAL: TOBACCO USE ARE YOU A:: NEVER SMOKER. LATEX QUESTIONNAIRE LATEX ALLERGY : HAVE YOU EVER DEVELOPED ANY TYPE OF REACTION AFTER HANDLING LATEX PRODUCTS SUCH RUBBER GLOVES, CONDOMS, DIAPHRAGMS, BALLOONS, SOCKS, OR UNDERWEAR?NO LATEX ALLERGY : HAVE YOU EVER DEVELOPED ANY TYPE OF REACTION DURING OR AFTER DENTAL APPOINTMENT, VAGINAL/RECTAL EXAMINATION, SURGICAL PROCEDURE, OR ANY OTHER EXPOSURE?NO DATE ASKED : 10/14/2019 LATEX RISK : HAVE YOU EVER HAD ANY DIFFICULTY BREATHING OR HIVES AFTER EATING OR HANDLING ANY FRUITS, OR VEGETABLES; SUCH KIWI, BANANAS, STONE FRUITS, OR CHESTNUTSNO LATEX RISK : DO YOU HAVE A PREVIOUS PERSONAL HISTORY OF MORE THAN NINE SURGERIES, SPINA BIFIDA, OR REPEATED CATHERIZATIONS? NO LATEX RISK : ARE YOU FREQUENTLY EXPOSED TO LATEX PRODUCTS IN YOUR OCCUPATION?NO ALCOHOL SCREENING DID YOU HAVE A DRINK CONTAINING ALCOHOL IN THE PAST YEAR?YES HOW OFTEN DID YOU HAVE SIX OR MORE DRINKS ON ONE OCCASION IN THE PAST YEAR?NEVER (0 POINTS) HOW MANY DRINKS DID YOU HAVE ON A TYPICAL DAY WHEN YOU WERE DRINKING IN THE PAST YEAR?1 OR 2 (0 POINTS) HOW OFTEN DID YOU HAVE A DRINK CONTAINING ALCOHOL IN THE PAST YEAR?TWO TO FOUR TIMES A MONTH (2 POINTS) POINTS2 INTERPRETATIONNEGATIVE RECREATIONAL DRUG USE DENIES. CAFFEINE CAFFEINE USE?YES COFFEE 3-4 TIMES A DAY MUSLIM MUSLIM NO PRESYBETERIAN BELIEFS THAT WOULD IMPACT HEALTH CARE. 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 DIET: REGULAR/NO ED. EXERCISE: NO REGULAR EXERCISE. MARITAL STATUS: . OTHERS AT HOME: SPOUSE, CHILDREN. NEW PATIENT PAIN DIARY TODAY'S VISIT 12/27/2019 PATIENT DESCRIBES PAIN :ACHING, BURNING, HAVE IT ALL THE TIME, IT COMES AND GOES, SHOOTING PT REPORTS PAIN IS A CONSTANT ACHING/BURNING WITH OCCASIONAL SHOOTING DOWN LEFT LEG FROM 0-10, WHAT LEVEL IS YOUR PAIN TODAY?6 PRECIPITATING FACTORS NONE ALLEVIATING FACTORS NONE PAIN CLINIC PFS, CLERGY, PUBLIC HEALTH REFERRALS HAS THE PATIENT BEEN EDUCATED REGARDING HIS/HER PLAN OF CARE?YES HAS THE PATIENT BEEN EDUCATED REGARDING PAIN, THE RISK FOR PAIN, THE IMPORTANCE OF EFFECTIVE PAIN MANAGEMENT, AND THE PAIN ASSESSMENT PROCESS?YES ADVANCE DIRECTIVE ADVANCE DIRECTIVE DISCUSSED WITH PATIENT:YES 12/09/2019 PT STATES SHE HAS LIVING WILL AND POA. PT DOES NOT HAVE HCP AND DECLINES INFO AND ASSISTANCE WITH FORM AT THIS TIME. JS HOSPITALIZATION/MAJOR DIAGNOSTIC PROCEDURE SEE ABOVE AND CHILDBIRTH X4 REVIEW OF SYSTEMS REVIEWED BY: PROVIDER: JOSEP WAGNER MD . CONSTITUTIONAL: ANY CHANGE IN YOUR MEDICAL CONDITION? NO . CHILLS NO . FEVER NO . INFECTION: DO YOU HAVE NEW INFECTIONS? NO . DO YOU HAVE HISTORY OF MRSA? NO . MUSCULOSKELETAL: ANY NEW PATTERNS OF PAIN OR NUMBNESS? NO . GASTROENTEROLOGY: ANY NEW CHANGE IN BOWEL CONTROL? NO . GENITOURINARY: ANY NEW CHANGE IN BLADDER CONTROL? NO . IS THERE A CHANCE YOU COULD BE ? NO . HEMATOLOGY/LYMPH: DO YOU TAKE ANY BLOOD THINNERS? (FOR EXAMPLE- COUMADIN, PLAVIX, AGGRENOX, PLATEL, PRADAXA, OR XARELTO) NO . WHEN WAS YOUR LAST DOSE? DATE: TIME: . NEUROLOGY: HAVE YOU FALLEN IN THE PAST 12 MONTHS? NO . ANY NEW EXTREMITY NUMBNESS OR WEAKNESS? NO . CARDIOLOGY: DO YOU HAVE A PACEMAKER OR DEFIBRILLATOR? NO . RESPIRATORY: HAVE YOU BEEN SICK IN THE PAST WEEK? NO . FEVER NO . FLU LIKE SYMPTOMS? NO . COUGH NO . INTEGUMENTARY: DO YOU HAVE ANY RASHES OR OPEN SORES? NO . ALLERGIC/IMMUNO: ARE YOU ALLERGIC TO IV DYE? NO . ANY NEW ALLERGIES? NO . PSYCHIATRIC: DO YOU HAVE THOUGHTS OF HURTING YOURSELF OR SOMEONE ELSE? NO . ARE YOU ABUSED, NEGLECTED, OR IN AN UNSAFE ENVIRONMENT? NO . ENDOCRINOLOGY: ARE YOU DIABETIC? NO . OTHER: DO YOU NEED ANY PRESCRIPTIONS? NO . IF YES, PLEASE LIST: ____ . ANY NEW PROBLEMS WITH YOUR MEDICATIONS? NO . WHEN DID YOU LAST EAT? ____12/26/19 1900 . WHEN DID YOU LAST DRINK? ____12/27/19 0600 . WHAT DID YOU LAST DRINK? ____APPLE JUICE . NAME OF PERSON DRIVING YOU HOME? ____HUSBAND . DO YOU HAVE ANY OTHER QUESTIONS OR CONCERNS NO . VITAL SIGNS WT 148 LBS, HT 66.5 IN, BMI 23.53 INDEX, BP 116/72 MM HG, HR 65 /MIN, RR 16 /MIN, TEMP 97.3 F, OXYGEN SAT % 100%, SAFE IN ENV? (Y/N) YES, NA INITIALS AW 0927, REVIEWED BY: COLIN. ASSESSMENTS INTERVERTEBRAL DISC DISORDERS WITH RADICULOPATHY, LUMBAR REGION - M51.16 (PRIMARY) TREATMENT INTERVERTEBRAL DISC DISORDERS WITH RADICULOPATHY, LUMBAR REGION [facility] FLUORO GUIDE SPINE INJECTION (PAIN)[id number] NOTES: TEST FOR COVID 19 NEGATIVE . PROCEDURES PRE PROCEDURE DIAGNOSIS LUMBAR DISC DISORDER WITH RADICULOPATHY POST PROCEDURE DIAGNOSIS LUMBAR DISC DISORDER WITH RADICULOPATHY PROCEDURE LUMBAR EPIDURAL STEROID INJECTION UNDER FLUOROSCOPIC GUIDANCE SURGEON DR. JOSEP WAGNER CONTINUOUS WAVE OPERATOR NONE ANESTHESIA LOCAL PRE PROCEDURE NOTE THE PATIENT HAS A HISTORY OF CHRONIC LOW BACK PAIN. I EVALUATED THE PATIENT AND REVIEWED THE CHART. I WENT OVER THE RISKS, ALTERNATIVES, AND BENEFITS ASSOCIATED WITH THIS PROCEDURE. I DISCUSSED WITH THE PATIENT THAT THE USE OF STEROIDS MAY CONTRIBUTE TO IMMUNOSUPPRESSION OF HER BODY AGAINST INFECTIONS SUCH THE RACHEL VIRUS, COVID-19. SHE IS AWARE OF THE POTENTIAL COMPLICATIONS ASSOCIATED WITH AN INFECTION OF THIS VIRUS INCLUDING . THE PATIENT WOULD LIKE TO PROCEED AND GIVE CONSENT TO PERFORMED THE PROCEDURE. THE PATIENT DENIES UNEXPLAINABLE WEIGHT LOSS, FEVER, CHILLS, OR NEW CHANGES IN URINARY OR BOWEL CONTROL. THE PATIENT IS COVID-19 NEGATIVE DESCRIPTION OF PROCEDURE THE PATIENT WAS BROUGHT TO THE PROCEDURE ROOM AND PLACED IN THE PRONE POSITION. THE LUMBOSACRAL AREA WAS CLEANED WITH BETADINE SOLUTION AND DRAPED ASEPTICALLY. THE PROCEDURE WAS DONE UNDER STERILE CONDITIONS. I CHECKED LATERALITY AND THE LEVEL WHERE THE PROCEDURE WAS GOING TO BE PERFORMED WITH THE PATIENT AND THE SUPPORTING STAFF AT THE MOMENT OF THE TIME OUT IN THE PROCEDURE ROOM. UNDER FLUOROSCOPIC GUIDANCE, THE TARGET POINT WAS SELECTED AT THE INTERLAMINAR LEVEL OF L4-L5. LIDOCAINE WAS USED TO NUMB THE SKIN AND THE SUBCUTANEOUS TISSUE BELOW IT. EPIDURAL TUOHY NEEDLE, 17-GAUGE, WAS ADVANCED UNDER FLUOROSCOPIC GUIDANCE AND FOLLOWING PATIENT FEEDBACK UNTIL THE EPIDURAL SPACE WAS REACHED, 7 CM DEEP INTO THE SKIN BY THE LOSS OF RESISTANCE TECHNIQUE. ISOVUE M DYE 30%, 0.25 ML, WAS INJECTED SHOWING ADEQUATE SPREAD OF THE DYE. THEN, A SOLUTION OF 3 ML OF NORMAL SALINE WITH DEXAMETHASONE 10 MG WAS INJECTED SLOWLY FOLLOWING PATIENT FEEDBACK. THERE WAS NO EVIDENCE OF BLOOD, PARESTHESIA OR CEREBROSPINAL FLUID DURING THE PROCEDURE. THE PATIENT DEVELOPED A VASOVAGAL. THE BLOOD PRESSURE REMAINED STABLE. WE PUT THE PATIENT IN [place]. THE PATIENT RESPONDED TO IV FLUIDS. THE PATIENT WAS SENT TO THE RECOVERY ROOM. THE PATIENT WAS MOVING THE EXTREMITIES AND DOING WELL. THERE WAS NO COMPLICATION DURING THE PROCEDURE. FLUOROSCOPY TIME WAS 9 SECONDS. POST PROCEDURE NOTE FO ANY PROCEDURES IN THE FUTURE THE PATIENT WILL REQUIRE IV WITH 1000 ML LACTATED RINGERS BEFORE WE START. THE PATIENT WILL BE SEEN IN A FOLLOW UP IN THE NEXT FEW WEEKS. I AM LOOKING FOR LONG LASTING PAIN RELIEF FOR THE PATIENT WITH THIS INJECTION. INSTRUCTIONS WERE GIVEN, QUESTIONS WERE ANSWERED, AND THE PATIENT EXPRESSED UNDERSTANDING AND AGREES WITH THE PLAN. I INSTRUCTED THE PATIENT TO STAY HOME, IF POSSIBLE, FOR A WEEK DUE TO COVID-19. I, OMID SELLERS, DOCUMENTED THE ABOVE INFORMATION ACTING A SCRIBE FOR DR. WAGNER. 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 IT IS NOT A COPY OF THE [employer] PROGRESS NOTE. MTDD
== END ==
LOC: M PAIN 10:15
PROVIDERS: ATTEND Anesthesiology
DX: M51.16 Intervertebral disc disorders with radiculopathy, lumbar region (principal); J45.909 Unspecified asthma, uncomplicated; Z86.59 Personal history of other mental and behavioral disorders; G47.00 Insomnia, unspecified; Z79.891 Long term (current) use of opiate analgesic; Z79.899 Other long term (current) drug therapy
CPT/HCPCS: 62323; J1100; Q9967

== ENCOUNTER → 2020-01-11 | Outpatient (CLI) | payer OTHER ==
[~2020-01-11] MED LIST changes: -ISOVUE-M 300 61% 15ML VIAL As Ordered ONE; -LIDOCAINE 1% SDV 30ML VIAL As Ordered ONE; -NORCO, ANEXSIA 5/325MG TABLET (HYDROcodone/ACETAMINOPHEN) As Ordered ONE; -dexameTHASONE 10MG/1ML VIAL PRES.FREE (J1100 PER 1MG) As Ordered ONE; -diazePAM 2 MG TAB As Ordered ONE
--- NOTE | 2020-01-19 03:29 | ECWPNPC ---
PATIENT NAME: LAYNE CARSON : 1975 GENDER: FEMALE VISIT DATE: 01/11/2020 DISCHARGE DATE: 01/11/20 1439 VISIT LOCKED DATE TIME: PHYSICIAN: CHEYENNE HODGSON RESOURCE: CHEYENNE HODGSON REASON FOR APPOINTMENT 1. POST-PROCEDURE F/UP-LOW BACK [id number] PAT COMPLETED EXCEPT DIAGRAM HISTORY OF PRESENT ILLNESS HISTORY OF PRESENT ILLNESS: PATIENT IS AGREEABLE TO TELEMED VISIT VIA ZOOM. HAD LUMBAR EPIDURAL STEROID INJECTION ON 12/27/2019. REPORTS SIGNIFICANT REDUCTION IN PAIN POST PROCEDURE. RATING PAIN VAS 2/10. FINDINGS LYRICA 100 MG TWICE A DAY THAT WAS STARTED AT LAST VISIT IS HELPFUL. DISCUSSED MEDICATION AND TREATMENT OPTIONS. PAIN THE PATIENT DESCRIBES THE PAINAFTER THE PROCEDURE SEVERITY - PAIN SCORE OF2/10 LOCATIONSLOWER BACK QUALITYACHING DURATIONALL DAY, INTERMITTENT PAIN IS INCREASED BY:PROLONGED STANDING SITTING PAIN IS DECREASED BY: HEATING PADS FALL RISK SCREENING: SCREENING :NO FALLS REPORTED IN THE LAST YEAR CURRENT MEDICATIONS TAKING LEXAPRO 10 MG TABLET 1 TABLET ORALLY ONCE A DAY, NOTES: 12/26/191999 TAKING TRAZODONE HCL 50 MG TABLET 1 TABLET AT BEDTIME NEEDED ORALLY DAILY, NOTES: 12/26/191999 TAKING SINGULAIR 10 MG TABLET 1 TABLET ORALLY ONCE A DAY, NOTES: 12/26/191999 TAKING PEPCID 20 MG TABLET 1 TABLET AT BEDTIME NEEDED ORALLY ONCE A DAY, NOTES: > 1 MONTH TAKING MULTIVITAMINS TABLET 1 ORALLY DAILY, NOTES: 12/26/191999 TAKING ALBUTEROL SULFATE HFA 108 (90 BASE) MCG/ACT AEROSOL SOLUTION 2 PUFFS INHALATION NEEDED, NOTES: > 1 MONTH TAKING TRAMADOL HCL 50 MG TABLET 1 TO 2TAB ORALLY Q8H PRN MDD3, NOTES: 12/25/19 TAKING LYRICA 100 MG CAPSULE 1 CAPSULE ORALLY BID MDD2, NOTES: 12/26/191999 NOT-TAKING TIZANIDINE HCL 4 MG TABLET 1 TABLET NEEDED ORALLY THREE TIMES A DAY NOT-TAKING CYMBALTA 60 MG 1 TABLET PO ONCE DAILY NOT-TAKING MELATONIN 3 MG TABLET 1 TAB ORALLY NIGHTLY NOT-TAKING ADVAIR DISKUS 250-50 MCG/DOSE MISCELLANEOUS 1 INHALATION ONCE DAILY NOT-TAKING NEXIUM 40 MG CAPSULE DELAYED RELEASE DIRECTED ORALLY PRN MEDICATION LIST REVIEWED AND RECONCILED WITH THE PATIENT PAST MEDICAL HISTORY ASTHMA ANXIETY INSOMNIA SEASONAL ALLERGIES GOITER/REMOVED DEPRESSION CYSTOCELE CHRONIC BACK PAIN ALLERGIES SEASONAL: ITCHY EYES, RUNNY NOSE - ALLERGY REVIEW OF SYSTEMS REVIEWED BY: PROVIDER: CHEYENNE QUAN . CONSTITUTIONAL: ANY CHANGE IN YOUR MEDICAL CONDITION? NO . CHILLS NO . FEVER NO . INFECTION: DO YOU HAVE NEW INFECTIONS? NO . DO YOU HAVE HISTORY OF MRSA? NO . MUSCULOSKELETAL: ANY NEW PATTERNS OF PAIN OR NUMBNESS? NO . GASTROENTEROLOGY: ANY NEW CHANGE IN BOWEL CONTROL? NO . GENITOURINARY: ANY NEW CHANGE IN BLADDER CONTROL? NO . IS THERE A CHANCE YOU COULD BE ? NO . HEMATOLOGY/LYMPH: DO YOU TAKE ANY BLOOD THINNERS? (FOR EXAMPLE- COUMADIN, PLAVIX, AGGRENOX, PLATEL, PRADAXA, OR XARELTO) NO . WHEN WAS YOUR LAST DOSE? DATE: TIME: . NEUROLOGY: HAVE YOU FALLEN IN THE PAST 12 MONTHS? NO . ANY NEW EXTREMITY NUMBNESS OR WEAKNESS? NO . CARDIOLOGY: DO YOU HAVE A PACEMAKER OR DEFIBRILLATOR? NO . RESPIRATORY: HAVE YOU BEEN SICK IN THE PAST WEEK? NO . FEVER NO . FLU LIKE SYMPTOMS? NO . COUGH NO . INTEGUMENTARY: DO YOU HAVE ANY RASHES OR OPEN SORES? NO . ALLERGIC/IMMUNO: ARE YOU ALLERGIC TO IV DYE? NO . ANY NEW ALLERGIES? NO . PSYCHIATRIC: DO YOU HAVE THOUGHTS OF HURTING YOURSELF OR SOMEONE ELSE? NO . ARE YOU ABUSED, NEGLECTED, OR IN AN UNSAFE ENVIRONMENT? NO . ENDOCRINOLOGY: ARE YOU DIABETIC? NO . OTHER: DO YOU NEED ANY PRESCRIPTIONS? NO . IF YES, PLEASE LIST: ____ . ANY NEW PROBLEMS WITH YOUR MEDICATIONS? NO . WHEN DID YOU LAST EAT? ____ . WHEN DID YOU LAST DRINK? ____ . WHAT DID YOU LAST DRINK? ____ . NAME OF PERSON DRIVING YOU HOME? ____ . DO YOU HAVE ANY OTHER QUESTIONS OR CONCERNS NO . EXAMINATION GENERAL EXAMINATION: GENERALNO ACUTE DISTRESS, WELL NOURISHED AND HYDRATED. PSYCHAPPROPRIATE MOOD AND AFFECT . FACE:UNREMARKABLE. ASSESSMENTS INTERVERTEBRAL DISC DISORDERS WITH RADICULOPATHY, LUMBAR REGION - M51.16 (PRIMARY) TREATMENT INTERVERTEBRAL DISC DISORDERS WITH RADICULOPATHY, LUMBAR REGION CONTINUE LYRICA CAPSULE, 100 MG, 1 CAPSULE, ORALLY, BID MDD2, NOTES: 12/26/191999 NOTES: ADVISED TO CONTINUE LYRICA 100 MG TWICE A DAY. PATIENT STATES THAT TRAMADOL IS NOT VERY EFFECTIVE. I GAVE HER THE OPTION OF DISCONTINUE TRAMADOL FOR NOW. FOLLOW-UP WILL BE SCHEDULED IN 2 MONTHS. ENCOURAGED TO CALL SOONER SHOULD HER PAIN RETURN. IT SHOULD BE NOTED PATIENT HAS A VASOVAGAL RESPONSE AND DR. WAGNER PLANS ON USING IV BOLUS PREPROCEDURE IN THE FUTURE. TOTAL TIME SPENT DURING TELEMED VISIT WAS APPROXIMATELY 12 MINUTES. OTHERS NOTES: VITALS NOT OBTAINED DUE TO VIRTUAL VISIT, PRE SCREENING COMPLETED 01/10/20, NA. DISPOSITION & COMMUNICATION FOLLOW UP 2 MONTHS (REASON: LOW BACK PAIN) ELECTRONICALLY SIGNED BY KADEEM RODRIGUEZ ON 01/18/2020 AT 03:48 PM EDT DISCLAIMER : THIS IS A VISIT SUMMARY EXTRACTED FROM THE [employer] CHART. IT IS NOT A COPY OF THE [employer] PROGRESS NOTE. VERN
== END ==
LOC: M TMPAIN 10:15 → M PAIN 10:15
PROVIDERS: ATTEND Nurse Practitioner Family
DX: M51.16 Intervertebral disc disorders with radiculopathy, lumbar region (principal); Z79.891 Long term (current) use of opiate analgesic; Z79.899 Other long term (current) drug therapy

== ENCOUNTER → 2020-05-31 | Outpatient (CLI) | payer OTHER ==
--- NOTE | 2020-06-05 16:42 | ECWPNPC ---
PATIENT NAME: LAYNE CARSON : 1975 GENDER: FEMALE VISIT DATE: 05/31/2020 DISCHARGE DATE: 05/31/20 1452 VISIT LOCKED DATE TIME: PHYSICIAN: CHEYENNE HODGSON RESOURCE: CHEYENNE HODGSON REASON FOR APPOINTMENT 1. LOW BACK HISTORY OF PRESENT ILLNESS PAIN CENTER INTAKE QUESTIONS: HERE FOR FOLLOW-UP OF CHRONIC LOW BACK PAIN. REPORTING AN INCREASE IN LOW BACK PAIN OVER THE PAST WEEK. PAIN IS LOCATED IN THE RIGHT LOW BACK WITH RADIATION INTO THE RIGHT POSTERIOR THIGH. HAS BENEFITED FROM SIJ AND LESI IN THE PAST. DISCUSSED TREATMENT PLAN. REVIEWED MRI. RATING PAIN LEVEL A 6/10. PAIN IS AGGRAVATED BY PROLONGED STANDING. DESCRIBES PAIN A CONSTANT ACHE. GENERAL: -. FALL RISK SCREENING: SCREENING :NO FALLS REPORTED IN THE LAST YEAR PAIN SCREENING: PATIENT HAS A COMPLAINT OF ACUTE OR CHRONIC PAIN :YES LOCATION OF PAIN:RIGHT HIP, LEG(S) INTENSITY OF PAIN (SCALE OF 1 TO 10):6 WHAT DOES YOUR PAIN FEEL LIKE:ACHING, BURNING, SORE NURSING NOTE: -. CURRENT MEDICATIONS TAKING LEXAPRO 10 MG TABLET 1 TABLET ORALLY ONCE A DAY, NOTES: 12/26/191999 TAKING SINGULAIR 10 MG TABLET 1 TABLET ORALLY ONCE A DAY, NOTES: 12/26/191999 TAKING MULTIVITAMINS TABLET 1 ORALLY DAILY, NOTES: 12/26/191999 TAKING ALBUTEROL SULFATE HFA 108 (90 BASE) MCG/ACT AEROSOL SOLUTION 2 PUFFS INHALATION NEEDED, NOTES: > 1 MONTH TAKING LYRICA 100 MG CAPSULE 1 CAPSULE ORALLY BID MDD2, NOTES: 12/26/191999 TAKING PROTONIX 40 MG TABLET DELAYED RELEASE 1 TABLET ORALLY ONCE A DAY NOT-TAKING TRAZODONE HCL 50 MG TABLET 1 TABLET AT BEDTIME NEEDED ORALLY DAILY, NOTES: 12/26/191999 NOT-TAKING PEPCID 20 MG TABLET 1 TABLET AT BEDTIME NEEDED ORALLY ONCE A DAY, NOTES: > 1 MONTH NOT-TAKING TRAMADOL HCL 50 MG TABLET 1 TO 2TAB ORALLY Q8H PRN MDD3, NOTES: 12/25/19 NOT-TAKING TIZANIDINE HCL 4 MG TABLET 1 TABLET NEEDED ORALLY THREE TIMES A DAY NOT-TAKING CYMBALTA 60 MG 1 TABLET PO ONCE DAILY NOT-TAKING MELATONIN 3 MG TABLET 1 TAB ORALLY NIGHTLY NOT-TAKING ADVAIR DISKUS 250-50 MCG/DOSE MISCELLANEOUS 1 INHALATION ONCE DAILY NOT-TAKING NEXIUM 40 MG CAPSULE DELAYED RELEASE DIRECTED ORALLY PRN MEDICATION LIST REVIEWED AND RECONCILED WITH THE PATIENT PAST MEDICAL HISTORY ASTHMA ANXIETY INSOMNIA SEASONAL ALLERGIES GOITER/REMOVED DEPRESSION CYSTOCELE CHRONIC BACK PAIN ALLERGIES SEASONAL: ITCHY EYES, RUNNY NOSE - ALLERGY SURGICAL HISTORY THYROIDECTOMY/PARTIAL---BENIGN 02/2010 TUBAL LIGATION 03/30 RIGHT BREAST LUMP REMOVED/BENIGN 2000 SINUS SURGERY 2018 BLADDER SLING 03/2019 FAMILY HISTORY FATHER: ALIVE, HTN , HYPERLIPIDEMIA, DIAGNOSED WITH OTHER MALIGNANT NEOPLASM OF UNSPECIFIED SITE MOTHER: ALIVE, HTN, HYPERLIPIDEMIA, HYPERTENSION, UNSPECIFIED NONPSYCHOTIC MENTAL DISORDER FOLLOWING ORGANIC BRAIN DAMAGE MATERNAL AUNT: ALIVE, BREAST CANCER AGE 78, OTHER MALIGNANT NEOPLASM OF UNSPECIFIED SITE 3 BROTHER(S) . 1 SON(S) , 3 DAUGHTER(S) - HEALTHY. FATHER - LUNG CANCER2 BROTHERS - SKIN CANCER1 BROTHER . SOCIAL HISTORY GENERAL: TOBACCO USE ARE YOU A:: NEVER SMOKER. LATEX QUESTIONNAIRE LATEX ALLERGY : HAVE YOU EVER DEVELOPED ANY TYPE OF REACTION AFTER HANDLING LATEX PRODUCTS SUCH RUBBER GLOVES, CONDOMS, DIAPHRAGMS, BALLOONS, SOCKS, OR UNDERWEAR?NO LATEX ALLERGY : HAVE YOU EVER DEVELOPED ANY TYPE OF REACTION DURING OR AFTER DENTAL APPOINTMENT, VAGINAL/RECTAL EXAMINATION, SURGICAL PROCEDURE, OR ANY OTHER EXPOSURE?NO DATE ASKED : 10/14/2019 LATEX RISK : HAVE YOU EVER HAD ANY DIFFICULTY BREATHING OR HIVES AFTER EATING OR HANDLING ANY FRUITS, OR VEGETABLES; SUCH KIWI, BANANAS, STONE FRUITS, OR CHESTNUTSNO LATEX RISK : DO YOU HAVE A PREVIOUS PERSONAL HISTORY OF MORE THAN NINE SURGERIES, SPINA BIFIDA, OR REPEATED CATHERIZATIONS? NO LATEX RISK : ARE YOU FREQUENTLY EXPOSED TO LATEX PRODUCTS IN YOUR OCCUPATION?NO ALCOHOL SCREENING DID YOU HAVE A DRINK CONTAINING ALCOHOL IN THE PAST YEAR?YES HOW OFTEN DID YOU HAVE SIX OR MORE DRINKS ON ONE OCCASION IN THE PAST YEAR?NEVER (0 POINTS) HOW MANY DRINKS DID YOU HAVE ON A TYPICAL DAY WHEN YOU WERE DRINKING IN THE PAST YEAR?1 OR 2 (0 POINTS) HOW OFTEN DID YOU HAVE A DRINK CONTAINING ALCOHOL IN THE PAST YEAR?TWO TO FOUR TIMES A MONTH (2 POINTS) POINTS2 INTERPRETATIONNEGATIVE RECREATIONAL DRUG USE DENIES. CAFFEINE CAFFEINE USE?YES COFFEE 3-4 TIMES A DAY SIKHISM SIKHISM NO ALEVISM BELIEFS THAT WOULD IMPACT HEALTH CARE. 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 DIET: REGULAR/NO ED. EXERCISE: NO REGULAR EXERCISE. MARITAL STATUS: . OTHERS AT HOME: SPOUSE, CHILDREN. NEW PATIENT PAIN DIARY TODAY'S VISIT 12/27/2019 PATIENT DESCRIBES PAIN :ACHING, BURNING, HAVE IT ALL THE TIME, IT COMES AND GOES, SHOOTING PT REPORTS PAIN IS A CONSTANT ACHING/BURNING WITH OCCASIONAL SHOOTING DOWN LEFT LEG FROM 0-10, WHAT LEVEL IS YOUR PAIN TODAY?6 PRECIPITATING FACTORS NONE ALLEVIATING FACTORS NONE PAIN CLINIC PFS, CLERGY, PUBLIC HEALTH REFERRALS HAS THE PATIENT BEEN EDUCATED REGARDING HIS/HER PLAN OF CARE?YES HAS THE PATIENT BEEN EDUCATED REGARDING PAIN, THE RISK FOR PAIN, THE IMPORTANCE OF EFFECTIVE PAIN MANAGEMENT, AND THE PAIN ASSESSMENT PROCESS?YES ADVANCE DIRECTIVE ADVANCE DIRECTIVE DISCUSSED WITH PATIENT:YES 12/09/2019 PT STATES SHE HAS LIVING WILL AND POA. PT DOES NOT HAVE HCP AND DECLINES INFO AND ASSISTANCE WITH FORM AT THIS TIME. JS HOSPITALIZATION/MAJOR DIAGNOSTIC PROCEDURE SEE ABOVE AND CHILDBIRTH X4 REVIEW OF SYSTEMS CONSTITUTIONAL: ANY RECENT FEVER NO . CHILLS NO . WEIGHT CHANGE OF UNKNOWN REASONS NO . GASTROENTEROLOGY: NEW UNEXPLAINABLE CHANGES IN BOWEL CONTROL NO . CONSTIPATION NO . GENITOURINARY: ANY NEW CHANGE IN BLADDER CONTROL? NO . NEUROLOGY: NEW ONSET DIZZINESS OR NEUROLOGICAL CHANGES NOT MENTIONED NO . NEW NUMBNESS OR PAIN PATTERNS NOT MENTIONED AND PERTINENT TO TODAY'S VISIT NO . CARDIOLOGY: NEW CHEST PRESSURE NO . NEW CHEST PAIN NO . RESPIRATORY: UNEXPLAINABLE COUGH NO . NEW SHORTNESS OF BREATH NO . VITAL SIGNS WT 153.4 LBS, HT 66.5 IN, BMI 24.39 INDEX, BP 127/68 MM HG, HR 64 /MIN, RR 16 /MIN, TEMP 97.2 F, OXYGEN SAT % 97%, NA INITIALS AW 1359. EXAMINATION GENERAL EXAMINATION: GENERAL ALERT,NO DISTRESS . PSYCH AFFECT NORMAL . LUNGS: LUNG SOUNDS ARE CLEAR . HEART: HEART RATE REGULAR . MUSCULOSKELETAL: MST 5/5 BILAT. LOWER EXTREMITIES . LUMBAR: TENDERNESS RIGHT. SIJ . POSITIVE ARACELIS'S TESTING OVER RIGHT LEG. DIAGNOSTIC TESTS REVIEWEDMRI L/S SPINE 2019. ASSESSMENTS SACROILIITIS - M46.1 (PRIMARY) TREATMENT SACROILIITIS NOTES: RIGHT SIJ WITH IV ACCESS. PROCEDURE CODES FA211 ESTABILISHED PATIENT [facility] CHARGE DISPOSITION & COMMUNICATION FOLLOW UP POST PROCEDURE (REASON: RIGHT SIJ WITH IV ACCESS) ELECTRONICALLY SIGNED BY KADEEM RODRIGUEZ ON 06/05/2020 AT 03:53 PM EDT DISCLAIMER : THIS IS A VISIT SUMMARY EXTRACTED FROM THE [employer] CHART. IT IS NOT A COPY OF THE [employer] PROGRESS NOTE. THIERNOD
== END ==
LOC: M PAIN 14:00
PROVIDERS: ATTEND Nurse Practitioner Family
DX: M46.1 Sacroiliitis, not elsewhere classified (principal); J45.909 Unspecified asthma, uncomplicated; F41.9 Anxiety disorder, unspecified; G47.00 Insomnia, unspecified; J30.2 Other seasonal allergic rhinitis; F32.9 Major depressive disorder, single episode, unspecified; Z79.899 Other long term (current) drug therapy

== ENCOUNTER → 2020-07-03 | Outpatient (CLI) | payer OTHER ==
--- NOTE | 2020-07-05 01:13 | ECWPNPC ---
PATIENT NAME: LAYNE CARSON : 1975 GENDER: FEMALE VISIT DATE: 07/03/2020 DISCHARGE DATE: 07/03/20 1012 VISIT LOCKED DATE TIME: PHYSICIAN: CHEYENNE HODGSON RESOURCE: CHEYENNE HODGSON REASON FOR APPOINTMENT 1. DICUSS OTHER OPTIONS BESIDES SHOTS HISTORY OF PRESENT ILLNESS GENERAL: HERE FOR FOLLOW-UP OF CHRONIC LOW BACK PAIN. HAS OPTED NOT TO DO INTERVENTIONAL TREATMENT DUE TO THE FACT THAT SHE IS SCARED AND HER IS SCARED DUE TO HER REACTION TO THE LAST INJECTION WHICH WAS A VERY LOW HEART RATE. SHE WOULD LIKE TO INVESTIGATE ALTERNATIVES BESIDES INJECTIONS TO TREAT HER CHRONIC PAIN. HAS SUFFERED FROM CHRONIC GENERALIZED BODY PAIN FOR MANY YEARS. REPORTS PAIN IS WORSE IN THE MORNING. WORST AREA OF PAIN IS ACROSS HER LOWER BACK WITH RADIATION INTERMITTENTLY INTO POSTERIOR THIGHS. GENERALLY HURTS ALL OVER. STARTED ON LYRICA 100 MG TWICE A DAY SEVERAL MONTHS AGO. FINDS IT SOMEWHAT HELPFUL. REVIEWED MRI OF THE LS-SPINE AND DISCUSSED TREATMENT OPTIONS.-. FALL RISK SCREENING: SCREENING :NO FALLS REPORTED IN THE LAST YEAR PAIN SCREENING: PATIENT HAS A COMPLAINT OF ACUTE OR CHRONIC PAIN :YES LOCATION OF PAIN:LOW BACK INTENSITY OF PAIN (SCALE OF 1 TO 10):6 WHAT DOES YOUR PAIN FEEL LIKE:ACHING, SHOOTING DURATION:INTERMITTENT PAIN IS INCREASED BY:ACTIVITIES PAIN IS DECREASED BY:USE OF PAIN MEDICATIONS, OTHERS HEATING PAD TREATMENT/MEDICATIONS USED TO MANAGE PAIN:OTC PAIN RELIEVERS, NSAIDS LEVEL OF RELIEF FROM PAIN TREATMENTS IN THE PAST:25% PAIN HAS INTERFERED WITH THE FOLLOWING:HOUSEWORK, SLEEP, TOILETING NURSING NOTE: -. PAIN CENTER INTAKE QUESTIONS: DO YOU HAVE A HISTORY OF MRSA? :NO DO YOU TAKE A BLOOD THINNERS? :NO DO YOU HAVE ANY BLEEDING DISORDERS? :NO ANY NEW NUMBNESS OR WEAKNESS IN YOUR LEGS OR ARMS? :NO ANY PACEMAKER,DEFIBRILLATOR, OR DORSAL COLUMN STIMULATOR? :NO DO YOU HAVE ANY RASHES OR OPEN SORES? :NO ARE YOU ALLERGIC TO IV DYE? :NO ARE YOU DIABETIC? :NO ANY NEW PROBLEMS WITH YOUR MEDICATIONS? :YES STOPPED TAKING TRAMADOL IT DOES NOT WORK ANYMORE HAVE YOU RECEIVED A VACCINE IN THE PAST 30 DAYS? :NO DO YOU PLAN TO RECEIVE A VACCINE IN THE NEXT 21 DAYS? :NO DO YOU NEED ANY PRESCRIPTION? :NO DO YOU TAKE ANY IMMUNOSUPPRESSIVE MEDICATIONS? :NO IS THERE A CHANCE YOU COULD BE ? :NO ARE YOU BREAST FEEDING? :NO CURRENT MEDICATIONS TAKING LEXAPRO 10 MG TABLET 1 TABLET ORALLY ONCE A DAY TAKING SINGULAIR 10 MG TABLET 1 TABLET ORALLY ONCE A DAY TAKING MULTIVITAMINS TABLET 1 ORALLY DAILY TAKING ALBUTEROL SULFATE HFA 108 (90 BASE) MCG/ACT AEROSOL SOLUTION 2 PUFFS INHALATION NEEDED TAKING LYRICA 100 MG CAPSULE 1 CAPSULE ORALLY BID MDD2 TAKING PROTONIX 40 MG TABLET DELAYED RELEASE 1 TABLET ORALLY ONCE A DAY NOT-TAKING TRAZODONE HCL 50 MG TABLET 1 TABLET AT BEDTIME NEEDED ORALLY DAILY, NOTES: 12/26/191999 NOT-TAKING PEPCID 20 MG TABLET 1 TABLET AT BEDTIME NEEDED ORALLY ONCE A DAY, NOTES: > 1 MONTH NOT-TAKING TRAMADOL HCL 50 MG TABLET 1 TO 2TAB ORALLY Q8H PRN MDD3, NOTES: 12/25/19 NOT-TAKING TIZANIDINE HCL 4 MG TABLET 1 TABLET NEEDED ORALLY THREE TIMES A DAY NOT-TAKING CYMBALTA 60 MG 1 TABLET PO ONCE DAILY NOT-TAKING MELATONIN 3 MG TABLET 1 TAB ORALLY NIGHTLY NOT-TAKING ADVAIR DISKUS 250-50 MCG/DOSE MISCELLANEOUS 1 INHALATION ONCE DAILY NOT-TAKING NEXIUM 40 MG CAPSULE DELAYED RELEASE DIRECTED ORALLY PRN MEDICATION LIST REVIEWED AND RECONCILED WITH THE PATIENT PAST MEDICAL HISTORY ASTHMA ANXIETY INSOMNIA SEASONAL ALLERGIES GOITER/REMOVED DEPRESSION CYSTOCELE CHRONIC BACK PAIN ALLERGIES SEASONAL: ITCHY EYES, RUNNY NOSE - ALLERGY SURGICAL HISTORY THYROIDECTOMY/PARTIAL---BENIGN 02/2010 TUBAL LIGATION 03/30 RIGHT BREAST LUMP REMOVED/BENIGN 2000 SINUS SURGERY 2018 BLADDER SLING 03/2019 FAMILY HISTORY FATHER: ALIVE, HTN , HYPERLIPIDEMIA, DIAGNOSED WITH OTHER MALIGNANT NEOPLASM OF UNSPECIFIED SITE MOTHER: ALIVE, HTN, HYPERLIPIDEMIA, HYPERTENSION, UNSPECIFIED NONPSYCHOTIC MENTAL DISORDER FOLLOWING ORGANIC BRAIN DAMAGE MATERNAL AUNT: ALIVE, BREAST CANCER AGE 78, OTHER MALIGNANT NEOPLASM OF UNSPECIFIED SITE 3 BROTHER(S) . 1 SON(S) , 3 DAUGHTER(S) - HEALTHY. FATHER - LUNG CANCER2 BROTHERS - SKIN CANCER1 BROTHER . SOCIAL HISTORY GENERAL: TOBACCO USE ARE YOU A:: NEVER SMOKER. LATEX QUESTIONNAIRE LATEX ALLERGY : HAVE YOU EVER DEVELOPED ANY TYPE OF REACTION AFTER HANDLING LATEX PRODUCTS SUCH RUBBER GLOVES, CONDOMS, DIAPHRAGMS, BALLOONS, SOCKS, OR UNDERWEAR?NO LATEX ALLERGY : HAVE YOU EVER DEVELOPED ANY TYPE OF REACTION DURING OR AFTER DENTAL APPOINTMENT, VAGINAL/RECTAL EXAMINATION, SURGICAL PROCEDURE, OR ANY OTHER EXPOSURE?NO LATEX RISK : HAVE YOU EVER HAD ANY DIFFICULTY BREATHING OR HIVES AFTER EATING OR HANDLING ANY FRUITS, OR VEGETABLES; SUCH KIWI, BANANAS, STONE FRUITS, OR CHESTNUTSNO LATEX RISK : DO YOU HAVE A PREVIOUS PERSONAL HISTORY OF MORE THAN NINE SURGERIES, SPINA BIFIDA, OR REPEATED CATHERIZATIONS? NO LATEX RISK : ARE YOU FREQUENTLY EXPOSED TO LATEX PRODUCTS IN YOUR OCCUPATION?NO DATE ASKED : 07/03/2020 ALCOHOL SCREENING DID YOU HAVE A DRINK CONTAINING ALCOHOL IN THE PAST YEAR?YES HOW OFTEN DID YOU HAVE SIX OR MORE DRINKS ON ONE OCCASION IN THE PAST YEAR?NEVER (0 POINTS) HOW MANY DRINKS DID YOU HAVE ON A TYPICAL DAY WHEN YOU WERE DRINKING IN THE PAST YEAR?1 OR 2 (0 POINTS) HOW OFTEN DID YOU HAVE A DRINK CONTAINING ALCOHOL IN THE PAST YEAR?TWO TO FOUR TIMES A MONTH (2 POINTS) POINTS2 INTERPRETATIONNEGATIVE RECREATIONAL DRUG USE DENIES. CAFFEINE CAFFEINE USE?YES COFFEE 3-4 TIMES A DAY SHINTO SHINTO NO ZOROASTRIAN BELIEFS THAT WOULD IMPACT HEALTH CARE. 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 DIET: REGULAR/NO ED. EXERCISE: NO REGULAR EXERCISE. MARITAL STATUS: . OTHERS AT HOME: SPOUSE, CHILDREN. TODAY'S VISIT 12/27/2019 PATIENT DESCRIBES PAIN :ACHING, BURNING, HAVE IT ALL THE TIME, IT COMES AND GOES, SHOOTING PT REPORTS PAIN IS A CONSTANT ACHING/BURNING WITH OCCASIONAL SHOOTING DOWN LEFT LEG FROM 0-10, WHAT LEVEL IS YOUR PAIN TODAY?6 PRECIPITATING FACTORS NONE ALLEVIATING FACTORS NONE PAIN CLINIC PFS, CLERGY, PUBLIC HEALTH REFERRALS HAS THE PATIENT BEEN EDUCATED REGARDING HIS/HER PLAN OF CARE?YES HAS THE PATIENT BEEN EDUCATED REGARDING PAIN, THE RISK FOR PAIN, THE IMPORTANCE OF EFFECTIVE PAIN MANAGEMENT, AND THE PAIN ASSESSMENT PROCESS?YES ADVANCE DIRECTIVE ADVANCE DIRECTIVE DISCUSSED WITH PATIENT:YES PT STATES SHE HAS LIVING WILL AND POA. PT DOES NOT HAVE HCP AND DECLINES INFO AND ASSISTANCE WITH FORM AT THIS TIME. HOSPITALIZATION/MAJOR DIAGNOSTIC PROCEDURE SEE ABOVE AND CHILDBIRTH X4 REVIEW OF SYSTEMS CONSTITUTIONAL: ANY RECENT FEVER NO . CHILLS NO . WEIGHT CHANGE OF UNKNOWN REASONS NO . GASTROENTEROLOGY: NEW UNEXPLAINABLE CHANGES IN BOWEL CONTROL NO . CONSTIPATION NO . GENITOURINARY: ANY NEW CHANGE IN BLADDER CONTROL? NO . NEUROLOGY: NEW ONSET DIZZINESS OR NEUROLOGICAL CHANGES NOT MENTIONED NO . NEW NUMBNESS OR PAIN PATTERNS NOT MENTIONED AND PERTINENT TO TODAY'S VISIT NO . CARDIOLOGY: NEW CHEST PRESSURE NO . NEW CHEST PAIN NO . RESPIRATORY: UNEXPLAINABLE COUGH NO . NEW SHORTNESS OF BREATH NO . VITAL SIGNS WT 154.8 LBS, HT 66.5 IN, BMI 24.61 INDEX, BP 130/77 MM HG, HR 57 /MIN, RR 16 /MIN, TEMP 97.4 F, OXYGEN SAT % 100%, NA INITIALS SC 09:47, REVIEWED BY: PEG. EXAMINATION GENERAL EXAMINATION: GENERAL ALERT,NO DISTRESS . PSYCH AFFECT NORMAL . LUNGS: LUNG SOUNDS ARE CLEAR . HEART: HEART RATE REGULAR . MUSCULOSKELETAL:MST 5/5 BILAT. LOWER EXTREMITIES MULTIPLE AREAS OF TENDER SPOTS UPPER AND LOWER TORSO INDICATIVE OF FIBROMYALGIA. LUMBAR: TENDERNESS RIGHT. SIJ . POSITIVE ARACELIS'S TESTING OVER RIGHT LEG. DIAGNOSTIC TESTS REVIEWEDMRI L/S SPINE 2019. ASSESSMENTS FIBROMYALGIA - M79.7 (PRIMARY) TREATMENT FIBROMYALGIA NOTES: ADVISED TO GRADUALLY INCREASE LYRICA 100 MG CAPSULE 2 TO CAPSULES TWICE A DAY. WHEN SHE RUNS OUT OF 100MG CAP, WE WILL SEND A PRESCRIPTION FOR 200 MG CAPSULE 1 TWICE A DAY [facility]. THIS WILL BE A 90 DAY SUPPLY. PATIENT WAS ADVISED TO CALL US WITH ANY PROBLEMS WITH MEDICATION. FOLLOW-UP AT THE CLINIC IN 2 MONTHS SCHEDULED. PROCEDURE CODES FA211 ESTABILISHED PATIENT [facility] CHARGE DISPOSITION & COMMUNICATION FOLLOW UP 2 MONTHS (REASON: MEDICATION MANAGEMENT/LYRICA) ELECTRONICALLY SIGNED BY KADEEM RODRIGUEZ ON 07/04/2020 AT 01:20 PM EST DISCLAIMER : THIS IS A VISIT SUMMARY EXTRACTED FROM THE [employer] CHART. IT IS NOT A COPY OF THE [employer] PROGRESS NOTE. VERN
== END ==
LOC: M PAIN 09:45
PROVIDERS: ATTEND Nurse Practitioner Family
DX: M79.7 Fibromyalgia (principal); J45.909 Unspecified asthma, uncomplicated; F41.9 Anxiety disorder, unspecified; G47.00 Insomnia, unspecified; F32.9 Major depressive disorder, single episode, unspecified; Z79.899 Other long term (current) drug therapy

== ENCOUNTER → 2020-08-14 | Outpatient (REF) | payer OTHER ==
[2020-08-14 17:02] LABS: MAGNESIUM LEVEL 2.2 MG/DL (1.8-2.4); PHOSPHORUS LEVEL 2.7 MG/DL (2.5-4.9)
== END ==
LOC: M SFHCRHEU 15:03
PROVIDERS: ATTEND Internal Medicine
DX: M54.5 Low back pain (principal); R53.82 Chronic fatigue, unspecified

== ENCOUNTER → 2020-08-31 | Outpatient (CLI) | payer OTHER ==
--- NOTE | 2020-09-01 15:08 | SLEEPHOME ---
DIAGNOSTIC HOME SLEEP STUDY DATE: 08/31/2020 ORDERED BY: Yissel Hay M.D. and rheumatology. Diagnostic home sleep testing was performed due to concern for the obstructive sleep apnea syndrome in this patient with a history of chronic fatigue. For testing, a nocturnal T3 respiratory monitoring device was used. Continuous record was made of pulse, oxygen saturation, air flow, chest and abdominal strain, and body position. 9 hours and 59 minutes of data were reviewed. There were 9 hours and 43 minutes marked as time in bed. During the interval marked time in bed, there were 252 respiratory events identified of 10 seconds in duration or greater for a respiratory event index of 25.9. The events were primarily obstructive 9 mixed and central apneas were seen. The patient's baseline pulse rate was 67. Pulse rate range between 53 and 100. Baseline saturation was 95%. Saturations fell to at least 84% and there was a pattern of desaturations. Testing was performed in both the supine and non-supine positions. IMPRESSION: Abnormal home sleep testing with repetitive respiratory events and oxygen desaturations to 84% with a respiratory event index of 25.9 that is constant with the obstructive sleep apnea syndrome. RECOMMENDATION: The patient should be encouraged to undergo a formal sleep evaluation.
== END ==
LOC: M SLEEP HO 10:54
PROVIDERS: ATTEND Internal Medicine
DX: R53.82 Chronic fatigue, unspecified (principal)

== ENCOUNTER → 2020-09-01 | Outpatient (CLI) | payer OTHER | LOC: M PAIN 09:45 | PROVIDERS: ATTEND Nurse Practitioner Family | DX: M79.7 Fibromyalgia (principal); M46.1 Sacroiliitis, not elsewhere classified; J45.909 Unspecified asthma, uncomplicated; G47.00 Insomnia, unspecified; Z86.59 Personal history of other mental and behavioral disorders; Z79.899 Other long term (current) drug therapy ==

== ENCOUNTER → 2020-10-02 | Outpatient (CLI) | payer OTHER ==
--- NOTE | 2020-10-03 15:18 | SLEEPCENT ---
DATE: 10/02/2020 ORDERED BY: Barbara Belcher Nocturnal polysomnography was performed for the titration of pressure therapy in this patient with a history suggesting the obstructive sleep apnea syndrome, confirmed by home testing, revealing a respiratory event index of 25.9. For this testing, patient was fit with a ResMed AirFit F20 full-face mask of medium size. There was 4 cm of water pressure applied to the circuit, and the lights were extinguished. There was 7 hours and 58 minutes of data reviewed. There was 352 minutes of sleep identified. Sleep latency was prolonged at 58.5 minutes. REM latency was short at 62.5 minutes. Sleep architecture was good with four REM cycles. Overall sleep efficiency 75.8%. The patient's electrocardiogram shows a sinus rhythm with an average heart rate of 60 beats per minute. Rate ranged 50-90. EEG shows normal waveforms for wake and sleep. Respiratory events were fully palliated with CPAP at a pressure of +6. There was some activity noted in the limb EMG leads. Limb movement arousal index on this occasion was 6.3. IMPRESSION: Obstructive sleep apnea syndrome (G47.33). RECOMMENDATION: Nightly use of pressure therapy 6 cm of water.
== END ==
LOC: M SLEEP 20:00
PROVIDERS: ATTEND Nurse Practitioner Family
DX: G47.33 Obstructive sleep apnea (adult) (pediatric) (principal)

== ENCOUNTER → 2020-10-13 | Outpatient (CLI) | payer OTHER ==
--- NOTE | 2020-10-16 00:35 | ECWPNPC ---
PATIENT NAME: LAYNE CARSON : 1975 GENDER: FEMALE VISIT DATE: 10/13/2020 DISCHARGE DATE: 10/13/20 0000 VISIT LOCKED DATE TIME: PHYSICIAN: CHEYENNE HODGSON RESOURCE: CHEYENNE HODGSON REASON FOR APPOINTMENT 1. IN CLINIC VISIT/MEDICATION MANAGEMENT/STOPPED LYRICA AND STARTING GABAPENTIN 100 MG TWICE A DAY HISTORY OF PRESENT ILLNESS DEPRESSION SCREENING: PHQ-9 LITTLE INTEREST OR PLEASURE IN DOING THINGSSEVERAL DAYS FEELING DOWN, DEPRESSED, OR HOPELESSSEVERAL DAYS TROUBLE FALLING OR STAYING ASLEEP, OR SLEEPING TOO MUCHNEARLY EVERY DAY FEELING TIRED OR HAVING LITTLE ENERGYNEARLY EVERY DAY POOR APPETITE OR OVEREATING NOT AT ALL FEELING BAD ABOUT YOURSELF-OR THAT YOU ARE A FAILURE OR HAVE LET YOURSELF OR YOUR FAMILY DOWN NOT AT ALL TROUBLE CONCENTRATING ON THINGS, SUCH READING THE NEWSPAPER OR WATCHING TELEVISION NOT AT ALL MOVING OR SPEAKING SO SLOWLY THAT OTHER PEOPLE COULD HAVE NOTICED. OR THE OPPOSITE- BEING SO FIDGETY OR RESTLESS THAT YOU HAVE BEEN MOVING AROUND A LOT MORE THAN USUALNOT AT ALL THOUGHTS THAT YOU WOULD BE BETTER OFF , OR OF HURTING YOURSELF IN SOME WAY?NOT AT ALL TOTAL SCORE:8 INTERPRETATIONMILD DEPRESSION PHQ-2 (2015 EDITION) LITTLE INTEREST OR PLEASURE IN DOING THINGS?SEVERAL DAYS FEELING DOWN, DEPRESSED, OR HOPELESS?SEVERAL DAYS TOTAL SCORE2 GENERAL: HERE FOR FOLLOW-UP OF CHRONIC LOW BACK PAIN. WE STOPPED LYRICA A FEW MONTHS AGO DUE TO SWELLING IN HER HANDS AND ANKLES. THIS HAS RESOLVED. CURRENTLY USING GABAPENTIN 100 MG 3 TIMES A DAY WITHOUT SIGNIFICANT IMPROVEMENT IN PAIN. CHIEF AREA OF PAIN IS LOW BACK. DISCUSSED TREATMENT PLAN. -. FALL RISK SCREENING: SCREENING :ONE FALL WITHOUT INJURY IN THE PAST YEAR PAIN SCREENING: PATIENT HAS A COMPLAINT OF ACUTE OR CHRONIC PAIN :YES LOCATION OF PAIN:LOW BACK INTENSITY OF PAIN (SCALE OF 1 TO 10):5 WHAT DOES YOUR PAIN FEEL LIKE:ACHING, SHARP, SHOOTING DURATION:CONTINOUS, CONSTANT, ALL DAY PAIN IS INCREASED BY:ACTIVITIES PAIN IS DECREASED BY:OTHERS HEAT NURSING NOTE: -. PAIN CENTER INTAKE QUESTIONS: DO YOU HAVE A HISTORY OF MRSA? :NO DO YOU TAKE A BLOOD THINNERS? :NO DO YOU HAVE ANY BLEEDING DISORDERS? :NO ANY NEW NUMBNESS OR WEAKNESS IN YOUR LEGS OR ARMS? :YES FALL DOWN THE STAIRS WEAKNES IN BOTH ARMS BUT MORE IN THE RIGHT HAND ANY PACEMAKER,DEFIBRILLATOR, OR DORSAL COLUMN STIMULATOR? :NO DO YOU HAVE ANY RASHES OR OPEN SORES? :NO ARE YOU ALLERGIC TO IV DYE? :NO ARE YOU DIABETIC? :NO ANY NEW PROBLEMS WITH YOUR MEDICATIONS? :NO HAVE YOU RECEIVED A VACCINE IN THE PAST 30 DAYS? :NO DO YOU PLAN TO RECEIVE A VACCINE IN THE NEXT 21 DAYS? :NO DO YOU NEED ANY PRESCRIPTION? :NO DO YOU TAKE ANY IMMUNOSUPPRESSIVE MEDICATIONS? :NO IS THERE A CHANCE YOU COULD BE ? :NO ARE YOU BREAST FEEDING? :NO CURRENT MEDICATIONS TAKING LEXAPRO 10 MG TABLET 1 TABLET ORALLY ONCE A DAY TAKING SINGULAIR 10 MG TABLET 1 TABLET ORALLY ONCE A DAY TAKING MULTIVITAMINS TABLET 1 ORALLY DAILY TAKING ALBUTEROL SULFATE HFA 108 (90 BASE) MCG/ACT AEROSOL SOLUTION 2 PUFFS INHALATION NEEDED TAKING PROTONIX 40 MG TABLET DELAYED RELEASE 1 TABLET ORALLY ONCE A DAY TAKING TIZANIDINE HCL 4 MG TABLET 1 TABLET NEEDED ORALLY THREE TIMES A DAY TAKING GABAPENTIN 100 MG CAPSULE 1 CAPSULE ORALLY BID NOT-TAKING DICLOFENAC SODIUM ER 100 MG TABLET EXTENDED RELEASE 24 HOUR 1 TABLET ORALLY TWICE A DAY NEEDED NOT-TAKING TRAZODONE HCL 50 MG TABLET 1 TABLET AT BEDTIME NEEDED ORALLY DAILY, NOTES: 12/26/191999 NOT-TAKING PEPCID 20 MG TABLET 1 TABLET AT BEDTIME NEEDED ORALLY ONCE A DAY, NOTES: > 1 MONTH NOT-TAKING TRAMADOL HCL 50 MG TABLET 1 TO 2TAB ORALLY Q8H PRN MDD3, NOTES: 12/25/19 NOT-TAKING CYMBALTA 60 MG 1 TABLET PO ONCE DAILY NOT-TAKING MELATONIN 3 MG TABLET 1 TAB ORALLY NIGHTLY NOT-TAKING ADVAIR DISKUS 250-50 MCG/DOSE MISCELLANEOUS 1 INHALATION ONCE DAILY NOT-TAKING NEXIUM 40 MG CAPSULE DELAYED RELEASE DIRECTED ORALLY PRN MEDICATION LIST REVIEWED AND RECONCILED WITH THE PATIENT PAST MEDICAL HISTORY ASTHMA ANXIETY INSOMNIA SEASONAL ALLERGIES GOITER/REMOVED DEPRESSION CYSTOCELE CHRONIC BACK PAIN SLEEP ANPENA ALLERGIES SEASONAL: ITCHY EYES, RUNNY NOSE - ALLERGY SURGICAL HISTORY THYROIDECTOMY/PARTIAL---BENIGN 02/2010 TUBAL LIGATION 03/30 RIGHT BREAST LUMP REMOVED/BENIGN 2000 SINUS SURGERY 2018 BLADDER SLING 03/2019 SLEEP APENA 10/02/2020 SOCIAL HISTORY GENERAL: TOBACCO USE ARE YOU A:: NEVER SMOKER. LATEX QUESTIONNAIRE LATEX ALLERGY : HAVE YOU EVER DEVELOPED ANY TYPE OF REACTION AFTER HANDLING LATEX PRODUCTS SUCH RUBBER GLOVES, CONDOMS, DIAPHRAGMS, BALLOONS, SOCKS, OR UNDERWEAR?NO LATEX ALLERGY : HAVE YOU EVER DEVELOPED ANY TYPE OF REACTION DURING OR AFTER DENTAL APPOINTMENT, VAGINAL/RECTAL EXAMINATION, SURGICAL PROCEDURE, OR ANY OTHER EXPOSURE?NO LATEX RISK : HAVE YOU EVER HAD ANY DIFFICULTY BREATHING OR HIVES AFTER EATING OR HANDLING ANY FRUITS, OR VEGETABLES; SUCH KIWI, BANANAS, STONE FRUITS, OR CHESTNUTSNO LATEX RISK : DO YOU HAVE A PREVIOUS PERSONAL HISTORY OF MORE THAN NINE SURGERIES, SPINA BIFIDA, OR REPEATED CATHERIZATIONS? NO LATEX RISK : ARE YOU FREQUENTLY EXPOSED TO LATEX PRODUCTS IN YOUR OCCUPATION?NO DATE ASKED : 10/13/2020 ALCOHOL USE: YES. ALCOHOL SCREENING DID YOU HAVE A DRINK CONTAINING ALCOHOL IN THE PAST YEAR?YES HOW OFTEN DID YOU HAVE SIX OR MORE DRINKS ON ONE OCCASION IN THE PAST YEAR?NEVER (0 POINTS) HOW MANY DRINKS DID YOU HAVE ON A TYPICAL DAY WHEN YOU WERE DRINKING IN THE PAST YEAR?1 OR 2 (0 POINTS) HOW OFTEN DID YOU HAVE A DRINK CONTAINING ALCOHOL IN THE PAST YEAR?TWO TO FOUR TIMES A MONTH (2 POINTS) POINTS2 INTERPRETATIONNEGATIVE RECREATIONAL DRUG USE DENIES. CAFFEINE CAFFEINE USE? COFFEE 2-3 CUPS A DAY SIKHISM SIKHISM NO BUDDHIST BELIEFS THAT WOULD IMPACT HEALTH CARE. 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 DIET: REGULAR/NO ED. EXERCISE: NO REGULAR EXERCISE. MARITAL STATUS: . OTHERS AT HOME: SPOUSE, CHILDREN. TODAY'S VISIT 12/27/2019 PATIENT DESCRIBES PAIN :ACHING, BURNING, HAVE IT ALL THE TIME, IT COMES AND GOES, SHOOTING PT REPORTS PAIN IS A CONSTANT ACHING/BURNING WITH OCCASIONAL SHOOTING DOWN LEFT LEG FROM 0-10, WHAT LEVEL IS YOUR PAIN TODAY?6 PRECIPITATING FACTORS NONE ALLEVIATING FACTORS NONE - HAS THE PATIENT BEEN EDUCATED REGARDING HIS/HER PLAN OF CARE?YES HAS THE PATIENT BEEN EDUCATED REGARDING PAIN, THE RISK FOR PAIN, THE IMPORTANCE OF EFFECTIVE PAIN MANAGEMENT, AND THE PAIN ASSESSMENT PROCESS?YES ADVANCE DIRECTIVE ADVANCE DIRECTIVE DISCUSSED WITH PATIENT:YES PT STATES SHE HAS LIVING WILL AND POA. PT DOES NOT HAVE HCP AND DECLINES INFO AND ASSISTANCE WITH FORM AT THIS TIME. ALCOHOL USE: 10 DRINKS/WEEK. HOSPITALIZATION/MAJOR DIAGNOSTIC PROCEDURE CHILDBIRTH X4 SURGICAL RELATED SLEEP APENA VITAL SIGNS WT 158.4 LBS, HT 66.5 IN, BMI 25.18 INDEX, BP 137/62 MM HG, HR 74 /MIN, RR 18 /MIN, TEMP 97.5 F, OXYGEN SAT % 99%, SAFE IN ENV? (Y/N) YES, NA INITIALS AW [id number] TRACEY. ASSESSMENTS FIBROMYALGIA - M79.7 (PRIMARY) SACROILIITIS - M46.1 TREATMENT FIBROMYALGIA STOP GABAPENTIN CAPSULE, 100 MG, 1 CAPSULE, ORALLY, BID START GABAPENTIN CAPSULE, 300 MG, 1 CAPSULE, ORALLY, BID, 90 DAY(S), 180 CAPSULE, REFILLS 1 NOTES: RECOMMEND INCREASING GABAPENTIN TO 300 MG CAPSULE 1 TWICE DAILY. CONTINUE HOME STRETCHING EXERCISES. FOLLOW-UP IS SCHEDULED IN 3 MONTHS. PROCEDURE CODES FA211 ESTABILISHED PATIENT [facility] CHARGE DISPOSITION & COMMUNICATION FOLLOW UP 3 MONTHS (REASON: MEDICATION MANAGEMENT AFTER INCREASING GABAPENTIN TO 300 MG TWICE A DAY FOR LOW BACK PAIN/FIBROMYALGIA) ELECTRONICALLY SIGNED BY KADEEM RODRIGUEZ ON 10/15/2020 AT 07:05 PM EST DISCLAIMER : THIS IS A VISIT SUMMARY EXTRACTED FROM THE [employer] CHART. IT IS NOT A COPY OF THE [employer] PROGRESS NOTE. VERN
== END ==
LOC: M PAIN 09:30
PROVIDERS: ATTEND Nurse Practitioner Family
DX: M79.7 Fibromyalgia (principal); M46.1 Sacroiliitis, not elsewhere classified; J45.909 Unspecified asthma, uncomplicated; F41.9 Anxiety disorder, unspecified; G47.00 Insomnia, unspecified; F32.9 Major depressive disorder, single episode, unspecified; G47.30 Sleep apnea, unspecified; Z79.899 Other long term (current) drug therapy

== ENCOUNTER → 2021-01-25 | Outpatient (CLI) | payer OTHER ==
--- NOTE | 2021-01-25 15:55 | REPVR ---
PROCEDURE INFORMATION: Exam: MRA Head Without Contrast; Arteriography Exam date and time: 01/25/2021 10:21 AM Age: 45 years old Clinical indication: Headache and other: Migraine, skin paresthesia, fm HX ischemic heart dx TECHNIQUE: Imaging protocol: Magnetic resonance angiography head without contrast. Exam focused on the arteries. COMPARISON: MRI-Brain without Contrast 01/25/2021 9:20 AM FINDINGS: ANTERIOR CIRCULATION: Right internal carotid artery: Intracranial segment is patent with no significant stenosis. No aneurysm. Right middle cerebral artery: No occlusion or significant stenosis. No aneurysm. Right anterior cerebral artery: No occlusion or significant stenosis. No aneurysm. Left internal carotid artery: Intracranial segment is patent with no significant stenosis. No aneurysm. Left middle cerebral artery: No occlusion or significant stenosis. No aneurysm. Left anterior cerebral artery: No occlusion or significant stenosis. No aneurysm. POSTERIOR CIRCULATION: Right vertebral artery: No occlusion or significant stenosis. No aneurysm. Left vertebral artery: No occlusion or significant stenosis. No aneurysm. Basilar artery: No occlusion or significant stenosis. No aneurysm. Right posterior cerebral artery: No occlusion or significant stenosis. No aneurysm. Left posterior cerebral artery: No occlusion or significant stenosis. No aneurysm. IMPRESSION: No stenosis or occlusion. Electronically signed by: Mata Hong On 01/25/2021 15:54:33 PM
--- NOTE | 2021-01-25 15:56 | REPVR ---
PROCEDURE INFORMATION: Exam: MR Head Without Contrast Exam date and time: 01/25/2021 10:21 AM Age: 45 years old Clinical indication: Other: Migraine, skin paresthesia, fm HX ischemic heart dx TECHNIQUE: Imaging protocol: MR of the head without contrast. COMPARISON: CT Maxilofacial w/out contrast 09/30/2016 10:16 AM FINDINGS: Brain: There is no acute intracranial hemorrhage, cerebral edema, or midline shift. No restricted diffusion is present to suggest acute infarction. Cerebral ventricles: No hydrocephalus. Bones/joints: Unremarkable. Paranasal sinuses: Mild mucosal thickening is present in the ethmoid and left sphenoid sinuses. There are tiny mucous retention cysts in the right maxillary sinus. Mastoid air cells: Normal as visualized. No mastoid effusion. Orbital cavity: Unremarkable. Soft tissues: Unremarkable. IMPRESSION: No acute intracranial abnormality. Electronically signed by: Mata Hong On 01/25/2021 15:56:37 PM
== END ==
LOC: M PLARAD 08:56
PROVIDERS: ATTEND Family Medicine
DX: G43.909 Migraine, unspecified, not intractable, without status migrainosus (principal); R20.2 Paresthesia of skin; Z82.49 Family history of ischemic heart disease and other diseases of the circulatory system

== ENCOUNTER → 2021-06-15 | Outpatient (CLI) | payer OTHER | LOC: M PAIN 10:15 | PROVIDERS: ATTEND Anesthesiology | DX: M54.50 Low back pain, unspecified (principal); M46.1 Sacroiliitis, not elsewhere classified; G89.29 Other chronic pain; J45.909 Unspecified asthma, uncomplicated; G47.30 Sleep apnea, unspecified; Z86.59 Personal history of other mental and behavioral disorders; Z79.899 Other long term (current) drug therapy ==

== ENCOUNTER 2024-01-13 08:47 | Day surgery (SDC) | payer OTHER ==
[~2024-01-13] VITALS: Ht 200.7 cm; Wt 64.0 kg
[~2024-01-13 08:47] MED LIST changes: +CVS-161 PO; +FAMO40TA3 PO; -MOME50SP; +MONT-5 PO; +NASO50SP3; +PANT20TA6 PO; -SING10TA32 PO; +THERTAB52 PO
[2024-01-13] MEDS: NS 1,000 ML IV ONE (09:30)
[2024-01-13] MEDS ORDERED: fentaNYL 100 MCG/2 ML INJECTION As Ordered ONE (10:09)
[2024-01-13] MEDS ORDERED: propofoL 200 MG/20 ML VIAL As Ordered ONE (10:09)
[2024-01-13] MEDS ORDERED: GLYCOPYRROLATE INJ 0.2 MG/ML 2 ML VIAL As Ordered ONE (10:09)
[2024-01-13] MEDS ORDERED: LIDOCAINE 2% 100MG/5ML SDV (FOR ANES.) As Ordered ONE (10:09)
[2024-01-13 10:56] VITALS: BP 126/85; O2SAT 98
== END 2024-01-13 10:55 | disposition home or self-care (01) ==
LOC: M OPP 08:47
PROVIDERS: ATTEND Internal Medicine Gastroenterology
DX: K58.1 Irritable bowel syndrome with constipation (principal); Z83.711 Family history of hyperplastic colon polyps; R11.0 Nausea; R12 Heartburn; G47.30 Sleep apnea, unspecified; Z79.899 Other long term (current) drug therapy
CPT/HCPCS: 43235; 45378; J3010

== ENCOUNTER → 2024-10-05 | Outpatient (CLI) | payer OTHER ==
[2024-10-05 17:35] LABS: BASO % 0.5 % (0.0-1.0); EOS # 0.2 10^3/uL (0.0-0.5); EOS % 2.7 % (0.0-3.0); HEMATOCRIT 40.8 % (36.0-47.0); HEMOGLOBIN 13.8 g/dl (12.0-15.5); LYMPH # 1.6 10^3/uL (1.5-5.0); LYMPH % 24.6 % (24.0-44.0); MEAN CORPUSCULAR HGB CONC 33.8 g/dl (32.0-36.5); MEAN CORPUSCULAR VOLUME 91.7 fl (80.0-96.0); MONO # 0.3 10^3/uL (0.0-0.8); MONO % 5.1 % (2.0-8.0); NEUTROPHILS # 4.5 10^3/uL (1.5-8.5); NEUTROPHILS % 66.8 % (36.0-66.0); PLATELET COUNT, AUTOMATED 282 10^3/uL (150-450); RED BLOOD COUNT 4.45 10^6/uL (4.00-5.40); WHITE BLOOD COUNT 6.7 10^3/uL (4.0-10.0)
[2024-10-05 17:38] LABS: LIPASE 52 U/L (12-53)
[2024-10-05 17:39] LABS: AMYLASE 82 U/L (30-118)
[2024-10-05 17:40] LABS: ALBUMIN 3.9 G/DL (3.2-5.2); ALKALINE PHOSPHATASE 49 U/L (35-104); ALT/SGPT 24 U/L (7.0-40); AST/SGOT 20 U/L (<34); BILIRUBIN,TOTAL 0.4 MG/DL (0.3-1.2); BLOOD UREA NITROGEN 6 MG/DL (9-23); CARBON DIOXIDE LEVEL 26 MMOL/L (20-31); CHLORIDE LEVEL 108 MMOL/L (98-107); CREATININE FOR GFR 0.78 MG/DL (0.55-1.30); GLOMERULAR FILTRATION RATE > 60.0 (>51); GLUCOSE, FASTING 99 MG/DL (60-100); POTASSIUM SERUM 4.5 MMOL/L (3.5-5.1); SODIUM LEVEL 144 MMOL/L (136-145); TOTAL PROTEIN 6.9 G/DL (5.7-8.2)
== END ==
LOC: M LRY 11:51
PROVIDERS: ATTEND Physician Assistant Medical
DX: R10.11 Right upper quadrant pain (principal)

== ENCOUNTER → 2025-05-05 | Day surgery (SDC) | payer OTHER ==
[~2025-05-05] VITALS: Ht 170.2 cm; Wt 65.8 kg
[~2025-05-05] MED LIST changes: +GLYCOPYRROLATE INJ 0.2 MG/ML 2 ML VIAL As Ordered ONE; +LIDOCAINE 2% 100 MG/5 ML SDV (FOR ANES.) As Ordered ONE
[2025-05-05 10:30] VITALS: TEMP 97.5
[2025-05-05 10:42] VITALS: BP 124/71; O2SAT 99
== END | disposition home or self-care (01) ==
LOC: M OPP 08:44
PROVIDERS: ATTEND Internal Medicine Gastroenterology
DX: K63.5 Polyp of colon (principal); K64.8 Other hemorrhoids; Z86.0100 Personal history of colon polyps, unspecified; K44.9 Diaphragmatic hernia without obstruction or gangrene; R11.0 Nausea; R19.7 Diarrhea, unspecified; K31.84 Gastroparesis; G47.30 Sleep apnea, unspecified; Z79.899 Other long term (current) drug therapy; J45.909 Unspecified asthma, uncomplicated
CPT/HCPCS: 43239; 45385; 88305; J1596; J3010